=== PATIENT | female | born 1950 | race Caucasian/White ===

== ENCOUNTER 2023-08-08 11:27 | Outpatient (AMB) | payer MEDICARE, SELFPAY ==
--- NOTE | 2023-08-08 11:34 | MHC.OFFWIV ---
Intake Vital Signs 08/08/23 11:35 Height 5 ft BMI Reason not done Patient refused/unable BP 144/84 H Blood Pressure Location Rt brachial Position Sitting Respiration 14 Pulse 58 Pulse Source Pulse Oximeter Temp 98 F Temp Source Temporal Artery Scan Pulse Oximetry (%) 99 Oxygen Delivery Method Room Air Intake Visit Reasons: ? Sinus infection Intake Note: Patient is experiencing sinus pressure in cheeks and next to nose, as well as headaches and post nasal drip. Patient Tobacco Use Status: Never used Tobacco Stock Supervisor Required: No Accompanied by: Self / Same As Patient Allergies PAIN MEDICATIONS Adverse Reaction (Unknown, Uncoded 08/08/23 11:42) SENSITIVITY Do you need a note to return to daycare/school/sports/work: Yes Return to daycare/school/sports/work/other note: work HPI HPI Comments History of Present Illness Details Here today with complaints of sudden onset of sinus pain and pressure that started last night. Associated symptoms include the chills and a scratchy sore throat and cough. No medications tried at home. PFSH Social History Patient Tobacco Use Status: Never used Tobacco Review of Systems Const All systems reviewed & are unremarkable except as noted in HPI and below Physical Exam Vital Signs: Last Vital Signs Temp 98 F 08/08/23 11:35 Pulse 58 08/08/23 11:35 Resp 14 08/08/23 11:35 BP 144/84 H 08/08/23 11:35 Pulse Ox 99 08/08/23 11:35 Oxygen Delivery Method Room Air 08/08/23 11:35 Const Other: Awake alert oriented no acute distress TM intact and clear bilat Nares with mucoid discharge bilat, turbinates pale, mild sinus tenderness over right maxillary sinus with palpation Pharynx within normal limits rrr Lung sounds clear to auscultation bilat Assessment & Plan Assessment & Plan (1) Flu-like symptoms: Code(s): R68.89 - Other general symptoms and signs Plan: . (2) COVID-19 determined by clinical diagnostic criteria: Code(s): U07.1 - COVID-19 Plan Viral swab obtained today. + for COVID. She was made aware of this via phone at 1550 today. Isolation and Precautions for People with COVID-19 Updated November 09, 2022 If you were exposed to COVID-19, you should start taking precautions. Isolation and Exposure If you have COVID-19, you can spread the virus to others. There are precautions you can take to prevent spreading it to others: isolation, masking, and avoiding contact with people who are at high risk of getting very sick. Isolation is used to separate people with confirmed or suspected COVID-19 from those without COVID-19. These recommendations do not change based on COVID-19 hospital admission levels. If you have COVID-19, also see additional information on treatments that may be available to you. This information is intended for a general audience. Healthcare professionals should see Ending Isolation and Precautions for People with COVID-19. This [facility] guidance is meant to supplement?not replace?any federal, state, local, territorial, or [place] health and safety laws, rules, and regulations. For Healthcare Professionals: Ending Isolation and Precautions for People with COVID-19 When to Isolate Regardless of vaccination status, you should isolate from others when you have COVID-19. You should also isolate if you are sick and suspect that you have COVID-19 but do not yet have test results. If your results are positive, follow the full isolation recommendations below. If your results are negative, you can end your isolation. IF YOU TEST Negative You can end your isolation IF YOU TEST Positive Follow the full isolation recommendations below When you have COVID-19, isolation is counted in days, as follows: If you had no symptoms Day 0 is the day you were tested (not the day you received your positive test result) Day 1 is the first full day following the day you were tested If you develop symptoms within 10 days of when you were tested, the clock restarts at day 0 on the day of symptom onset If you had symptoms Day 0 of isolation is the day of symptom onset, regardless of when you tested positive Day 1 is the first full day after the day your symptoms started Isolation If you test positive for COVID-19, stay home for at least 5 days and isolate from others in your home. You are likely most infectious during these first 5 days. Wear a high-quality mask if you must be around others at home and in public. Do not go places where you are unable to wear a mask. For travel guidance, see CDC?s Travel webpage. Do not travel. Stay home and separate from others as much as possible. Use a separate bathroom, if possible. Take steps to improve ventilation at home, if possible. Don?t share personal household items, like cups, towels, and utensils. Monitor your symptoms. If you have an emergency warning sign (like trouble breathing), seek emergency medical care immediately. Learn more about what to do if you have COVID-19. Ending Isolation End isolation based on how serious your COVID-19 symptoms were. Loss of taste and smell may persist for weeks or months after recovery and need not delay the end of isolation. If you had no symptoms You may end isolation after day 5. If you had symptoms and: Your symptoms are improving You may end isolation after day 5 if: You are fever-free for 24 hours (without the use of fever-reducing medication). Your symptoms are not improving Continue to isolate until: You are fever-free for 24 hours (without the use of fever-reducing medication). Your symptoms are improving. 1 If you had symptoms and had: Moderate illness (you experienced shortness of breath or had difficulty breathing) You need to isolate through day 10. Severe illness (you were hospitalized) or have a weakened immune system You need to isolate through day 10. Consult your doctor before ending isolation. Ending isolation without a viral test may not be an option for you. If you are unsure if your symptoms are moderate or severe or if you have a weakened immune system, talk to a healthcare provider for further guidance. Regardless of when you end isolation Until at least day 11: Avoid being around people who are more likely to get very sick from COVID-19. Remember to wear a high-quality mask when indoors around others at home and in public. Do not go places where you are unable to wear a mask until you are able to discontinue masking (see below). For travel guidance, see CDC?s Travel webpage. Removing Your Mask After you have ended isolation, when you are feeling better (no fever without the use of fever-reducing medications and symptoms improving), Wear your mask through day 10. OR If you have access to antigen tests, you should consider using them. With two sequential negative tests 48 hours apart, you may remove your mask sooner than day 10. Note: If your antigen test results1 are positive, you may still be infectious. You should continue wearing a mask and wait at least 48 hours before taking another test. Continue taking antigen tests at least 48 hours apart until you have two sequential negative results. This may mean you need to continue wearing a mask and testing beyond day 10. After you have ended isolation, if your COVID-19 symptoms recur or worsen, restart your isolation at day 0. Talk to a healthcare provider if you have questions about your symptoms or when to end isolation. [1] As noted in the Food and Drug Administration labeling for authorized yxan-wmd-sghrtea antigen tests, negative test results do not rule out SARS-CoV-2 infection and should not be used as the sole basis for treatment or patient management decisions, including infection control decisions. Last Updated November 09, 2022 Total time spent caring for the patient today was 30 minutes. This includes time spent before the visit reviewing the chart, time spent during the visit, and time spent after the visit on documentation This note is constructed using voice recognition software. While every effort has been made to ensure accuracy in landscape manager, still errors may have been included Sometimes, these errors may affect the content or meaning of the given sentence . Orders: Orders SARS-CoV2/FLU/RSV Today R68.89 - Other general symptoms and signs Coding Level of Care Code Est Pt Level 4 (32450) Diagnoses Flu-like symptoms R68.89 COVID-19 determined by clinical diagnostic criteria U07.1
[2023-08-08 11:35] VITALS: BP 144/84; PULSE 58; RESP 14; TEMP 36.6; O2SAT 99
== END 2023-08-08 13:14 | disposition home or self-care (01) ==
PROVIDERS: PCP Family Medicine; Visit Provider Nurse Practitioner Family
DX: R68.89 Other general symptoms and signs (principal); U07.1 COVID-19
CPT/HCPCS: 99214

== ENCOUNTER 2023-08-08 14:46 | Outpatient (REF) | payer MEDICARE, OTHER, SELFPAY ==
[2023-08-08 15:38] LABS: Influenza A PCR NEGATIVE (Negative); Influenza B PCR NEGATIVE (Negative); Resp Syncy Virus RNA Qual PCR NEGATIVE (Negative); SARS COV2 PCR INHOUSE POSITIVE (Negative)
== END 2023-08-08 14:47 | disposition home or self-care (01) ==
LOC: HO.LNP 14:46
PROVIDERS: Visit Provider Nurse Practitioner Family
DX: Z11.52 Encounter for screening for COVID-19 (principal); Z20.822 Contact with and (suspected) exposure to COVID-19; R68.89 Other general symptoms and signs
CPT/HCPCS: 0241U

== ENCOUNTER 2024-04-13 09:44 | Inpatient (IN) | payer MEDICARE, MEDICAID, SELFPAY ==
--- NOTE | 2024-04-13 | ECG_ITS ---
Test Reason : pre-op Blood Pressure : / mmHG Vent. Rate : 057 BPM Atrial Rate : 057 BPM P-R Int : 150 ms QRS Dur : 086 ms QT Int : 452 ms P-R-T Axes : 018 -06 013 degrees QTc Int : 439 ms Sinus bradycardia Minimal voltage criteria for LVH, may be normal variant ( Sokolow-Mckeon ) Borderline ECG When compared with ECG of 29-MAY-2018 08:11, No significant change was found Referred By: Bryce Farfan Electronically Signed By:
--- NOTE | ~2024-04-13 | CT_ITS ---
EXAMINATION: CT ABDOMEN PELVIS WITH IV CONTRAST CLINICAL INFORMATION: BRBPR, rectal prolapase. COMPARISON: No prior CT available for comparison. TECHNIQUE: Multidetector volumetric imaging was performed from the superior aspect of the liver through the pubic symphysis . 5 mL of Omnipaque 350 injected Sagittal and coronal reformatted images were obtained on the technologist's workstation. This CT examination was performed using dose optimization techniques as appropriate, variously including the following: *Automated exposure control *Adjustment of mA and/or kV according to patient size (this includes techniques or standardized protocols for targeted exams where dose is matched to indication/reason for exam; i.e. extremities or head) *Use of iterative reconstruction technique DLP: 277 mGy-cm FINDINGS: LOWER THORAX: Included lung bases are clear. HEPATOBILIARY: No focal hepatic lesions. No biliary ductal dilatation. GALLBLADDER: Gallbladder unremarkable. SPLEEN: Spleen is normal in size. PANCREAS: No focal mass or ductal dilatation. STOMACH AND GASTROINTESTINAL TRACT: Stomach is grossly unremarkable. There is no bowel distention or thickening. No CT evidence of appendicitis. ADRENALS: No adrenal nodules. KIDNEYS/URETERS: No hydronephrosis, stones or solid mass lesions. URINARY BLADDER: Limited evaluation of the urinary bladder unopacified, images are degraded by beam hardening artifact from hip prosthesis. PELVIC VISCERA: There is soft tissue fullness also bone mass of the rectoanal junction 3.5 x 3.5 cm axially approximately 5.4 cm craniocaudally. Concerning for anorectal mass. This is very superficial and probably can be assessed by direct physical exam. Engorgement of the periuterine pelvic veins probably pelvic congestion. PERITONEUM: No free air or fluid. LYMPH NODES: No lymphadenopathy. VASCULAR:Abdominal aorta normal in size, no aneurysm found. 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 Grade 1 anterior spondylolisthesis and bilateral spondylolysis lysis of the pedicles of L5. CT/CT abdomen pelvis w IV con IMPRESSION: 1. There is soft tissue fullness of the rectoanal junction, concerning soft tissue mass 3.5 x 3.5 cm concerning for anorectal neoplasm. This is very superficial and probably can be visualized assessed by direct physical exam. Surgical evaluation recommended, Contrast enhanced MRI may be considered for further investigation if clinically indicated. 2. Engorgement of the periuterine pelvic veins probably pelvic congestion. 3. 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 Electronically signed by: Dallin Jeter MD 04/13/2024 01:06 PM EDT
[2024-04-13 09:48] VITALS: BP 138/84; PULSE 71; RESP 18; TEMP 36.6; O2SAT 100; BMI 16.6
--- NOTE | 2024-04-13 10:29 | ED_ITS ---
HPI - Female Genitourinary General Chief complaint: Urogenital-Female Stated complaint: urinary problem Time Seen by Provider: 04/13/24 10:08 Source: patient Mode of arrival: ambulatory Limitations: no limitations History of Present Illness ED Provider: DR. Forrest HPI Narrative: 73-year-old female came in for evaluation of rectal prolapse started to feel it 3 weeks ago, patient is finding more difficult to have bowel movement required to strain down, notice bright red blood per rectum, patient feels pressure in her rectal area and sometimes sharp pain, sometimes feel lightheadedness and generalized weakness. Patient do in a past bright blood if she is not straining down.Patient also feels pain and pressure when she sits down in her buttock. No dysuria, no frequency urination. Related Data Home Medications ?Medication ?Instructions ?Recorded ?Confirmed No Known Home Meds 08/08/23 08/08/23 Allergies Allergy/AdvReac Type Severity Reaction Status Date / Time No Known Allergies Allergy Verified 04/13/24 09:53 Review of Systems 2 Review of Systems: all other systems are reviewed and are negative Constitutional: Reports as per HPI and Reports no additional constitutional complaints Eyes: Reports as per HPI and Reports no additional eye complaints Reports system reviewed and no additional complaints, except as documented Cardiovascular: Reports as per HPI and Reports no additional cardiovascular complaints Respiratory: Reports as per HPI and Reports no additional respiratory complaints Gastrointestinal: Reports as per HPI and Reports no additional gastrointestinal complaints Genitourinary: Reports no additional female genitourinary complaints Musculoskeletal: Reports no additional musculoskeletal complaints Skin/Breast: Reports system reviewed and no additional complaints, except as docu Psychiatric: Reports no additional psychiatric complaints Endocrine: Reports no additional endocrine complaints Hematologic/Lymphatic: Reports no additional hematologic/lymphatic complaints Allergic/Immunologic: Reports no additional allergic/immunologic complaints Reports system reviewed and no additional complaints, except as documented and Reports Abnormal speech present [facility] Social History Social History Patient Tobacco Use Status: Never used Tobacco Advance Directives: No Advance Directives Information Provided: Yes Patient : No Physical Exam 2 Vital Signs: Vital Signs: Last Vital Signs Temp 97.9 F 04/13/24 12:28 Pulse 64 04/13/24 12:28 Resp 16 04/13/24 12:28 BP 161/63 H 04/13/24 12:28 Pulse Ox 100 04/13/24 12:28 O2 Del Method Room Air 04/13/24 12:28 BMI result Body Mass Index 16.6 Vital signs have been reviewed and appear to be correct. Blood pressure elevated. Heart rate normal. Respiratory rate normal. Temperature normal. Oxygen saturation normal. Appearance: Alert. Oriented X3. No acute distress. Head: Normal external exam. Normocephalic. Atraumatic. No Richard signs noted. No raccoon eyes noted Eyes: PERRLA. EOMI. Conjunctiva and sclera normal. Eyelids normal. ENT: TM's Normal. Pharynx normal. Uvula midline. Moist mucous membranes. No trismus noted. No drooling noted. No muffled voice noted. Neck: Normal inspection. Neck supple. FROM. No adenopathy. Thyroid Normal. No meningeal signs. No neck mass noted. CVS: Normal heart rate and rhythm. Heart sound normal. No murmurs noted. Pulses normal throughout. Respiratory: No respiratory distress. Painless inspiration. Breath sounds normal. No wheezes/rales/rhonchi noted. Chest nontender. No accessory muscle usage noted or decreased air movement noted. Abdomen: Soft and nontender. Bowel sounds normal in all 4 quadrants. No distention noted. No organomegaly noted. No visible injury noted. Rectal exam: 5 cm prolapsed rectum, no external or internal hemorrhoid is appreciated, no stool in the vault but positive for bright red blood. Back: No CVA tenderness. Full range of motion noted. Skin: Skin warm and dry. Normal skin color. Normal skin turgor. No rashes/lesions/lacerations noted. Extremities: No lower extremity edema. Extremities exhibit normal range of motion. Extremities nontender. Neuro: Oriented X 3. Cranial nerve exam: II-XII are grossly intact No motor deficit. No sensory deficit. Reflexes normal. Course Reevaluation(s) Reevaluation #1: rectal prolapse, not reducible, symptomatic with pain when she sat and causing bowel movements disturbance, case discussed with Dr. Meadows is to obtain CT abdomen pelvis with IV contrast and patient will be admitted for further evaluation. Time: 11:42 Medications Administered Generic Name Dose Route Start Last Admin Trade Name Freq PRN Reason Stop Dose Admin Dextrose/Lactated Ringer's 1,000 mls @ 125 mls/hr 04/13/24 11:30 04/13/24 12:25 D5lr IVCONT 125 mls/hr .Q8H BRYON Administration Discontinued Medications Generic Name Dose Route Start Last Admin Trade Name Jeimy PRN Reason Stop Dose Admin Iohexol 100 ml 04/13/24 11:47 04/13/24 11:47 Iohexol 350 Mg/Ml 100 Ml Infus..Btl IV 04/13/24 11:48 85 ml ONCE ONE Administration Medical Decision Making Differential Diagnosis Differential Diagnoses: The differential diagnosis associated with the presentation includes ( Rectal prolapse, hemorrhoid, colitis, diverticular disease, anemia, electrolyte derangement, UTI.) Admission/Observation Consideration of admission/observation: Escalation of care including admission/observation considered Consult Healthcare Provider Management of the patient was discussed with: [facility] Nurse Supervisor ( Dr. Meadows) Lab Data MDM Lab Attestation statement: I reviewed the patient's lab results. 04/13/24 10:29 04/13/24 10:29 Labs: Lab Results 04/13/24 Range/Units 10:29 WBC 12.1 H (4.8-10.8) X10*3/uL RBC 3.29 L (4.20-5.50) X10*6/uL Hgb 10.3 L (12.0-16.0) g/dl Hct 32.6 L (37.0-47.0) % MCV 99.1 H (80.0-98.0) fL MCH 31.3 (27.0-33.0) pg MCHC 31.6 (31.0-35.0) g/dl RDW 13.0 (11.0-16.0) % Plt Count 260 (160-400) X10*3/uL MPV 9.4 (9.4-12.3) fL Immature Gran % (Auto) 0.3 (0.0-0.4) % Neut % (Auto) 74.2 H (45-73) % Lymph % (Auto) 11.8 L (20-40) % [place] % (Auto) 11.8 H (2-11) % Eos % (Auto) 1.7 (0-4) % Baso % (Auto) 0.2 (0-2) % Lymph # (Auto) 1.4 (1.2-4.9) X10*3/uL [place] # (Auto) 1.4 H (0.1-1.2) X10*3/uL Eos # (Auto) 0.2 (0.0-0.4) X10*3/uL Baso # (Auto) 0.0 (0.0-0.2) X10*3/uL Abs Immat Gran (auto) 0.04 H (0.00-0.03) X10*3/uL Absolute Neuts (auto) 9.0 H (2.0-8.3) x10*3/uL Absolute Nucleated RBC 0.000 (0.0-0.012) X10*3/uL Nucleated RBC % (auto) 0.0 (0.0-0.2) /100WBC Sodium 142 (135-145) mmol/L Potassium 4.0 (3.3-5.1) mmol/L Chloride 104 (96-108) mmol/L Carbon Dioxide 26 (22-29) mmol/L Anion Gap 16 (12-20) BUN 19 H (9-16) mg/dL Creatinine 0.67 (0.5-1.4) mg/dL Estim Creat Clear Calc 44.9 Estimated GFR > 60 Random Glucose 109 (60-115) mg/dL Calcium 8.9 (8.4-10.2) mg/dL Total Bilirubin 0.3 (0.0-1.0) mg/dL AST 19 (5-31) U/L ALT 11 (0-31) U/L Alkaline Phosphatase 89 (39-117) U/L Total Protein 6.5 (6.5-8.0) g/dL Albumin 3.5 (3.5-5.0) g/dL Urine Color Yellow Urine Appearance Clear Urine pH 6.5 (5.0-9.0) Ur Specific [place] 1.020 (1.005-1.025) Urine Protein Trace (Neg-Trace) mg/dL Urine Glucose (UA) Negative (Negative) mg/dL Urine Ketones Negative (Negative) mg/dL Urine Blood Negative (Negative) Urine Nitrite Negative (Negative) Ur Leukocyte Esterase Small (1+) H (Negative) Urine RBC 0-2 (0-2) /HPF Urine WBC 0-5 (0-5) /HPF Ur Squamous Epith Cells 0-2 (0-2) /HPF Urine Bacteria None Seen (None Seen) Hyaline Casts 0-2 (0-2) /LPF Stool Occult Blood POSITIVE (NEGATIVE) Independent Interpretation I performed an independent interpretation of an: CT Scan ( abdomen And pelvis:1. There is soft tissue fullness of the rectoanal junction, concerning soft tissue mass 3.5 x 3.5 cm concerning for anorectal neoplasm. This is very superficial and probably can be visualized assessed by direct physical exam. Surgical evaluation recommended, Contrast enhance) Radiology Impression Discussion of test interpretation with radiology: I have reviewed the radiologist's reading. Discharge Plan Discharge Clinical Impression: Partial rectal prolapse Patient Disposition: Admitted As Inpatient
[2024-04-13 10:36] LABS: MANUAL DIFF FLAG NO
--- NOTE | 2024-04-13 10:36 | PC.NURSE ---
provider at bedside for rectal exam. IV established, labs obtained and sent. patient remains alert and oriented w/ even and unlabored respirations.
[2024-04-13 10:37] LABS: OBS Int Ctl Valid YES; OBS1 POSITIVE (NEGATIVE)
[2024-04-13 10:38] LABS: Appearance Urine Clear; Color Urine Yellow; Glucose Urine UA Negative (Negative); Leukocyte Esterase Urine Small (1+) (Negative); Nitrite Urine Negative (Negative); PH 6.5 (5.0-9.0); UMIC TRIGGER UACC YES; Urine Blood Negative (Negative); Urine Ketones Negative (Negative); Urine Protein Trace mg/dL (Neg-Trace)
[2024-04-13 10:39] LABS: Basophils Percent Auto 0.2 % (0-2); Eosinophils Absolute Auto 0.2 X10*3/uL (0.0-0.4); Eosinophils Percent Auto 1.7 % (0-4); Hematocrit 32.6 % (37.0-47.0); Hemoglobin 10.3 g/dl (12.0-16.0); Imm Gran Abs Auto 0.04 X10*3/uL (0.00-0.03); Imm Gran Pct Auto 0.3 % (0.0-0.4); Lymphocytes Absolute Auto 1.4 X10*3/uL (1.2-4.9); Lymphocytes Percent Auto 11.8 % (20-40); Mean Corpuscular HGB Conc 31.6 g/dl (31.0-35.0); Mean Corpuscular Hemoglobin 31.3 pg (27.0-33.0); Mean Corpuscular Volume 99.1 fL (80.0-98.0); Mean Platelet Volume 9.4 fL (9.4-12.3); Monocytes Absolute Auto 1.4 X10*3/uL (0.1-1.2); Monocytes Percent Auto 11.8 % (2-11); Neutrophils Percent Auto 74.2 % (45-73); Platelet Count 260 X10*3/uL (160-400); Red Blood Count 3.29 X10*6/uL (4.20-5.50); White Blood Count 12.1 X10*3/uL (4.8-10.8)
[2024-04-13 10:47] LABS: Bacteria Urine None Seen (None Seen); Hyaline Casts Urine 0-2 /LPF (0-2); RBC Urine 0-2 /HPF (0-2); Squamous Epithelial Cell Urine 0-2 /HPF (0-2); UACC Culture Trigger YES; WBC Urine 0-5 /HPF (0-5)
[2024-04-13 10:51] LABS: Alanine Aminotransferase 11 U/L (0-31); Albumin Level 3.5 g/dL (3.5-5.0); Alkaline Phosphatase 89 U/L (39-117); Anion Gap 16 (12-20); Aspartate Amino Transferase 19 U/L (5-31); Bilirubin Total 0.3 mg/dL (0.0-1.0); Blood Urea Nitrogen 19 mg/dL (9-16); Calcium 8.9 mg/dL (8.4-10.2); Carbon Dioxide 26 mmol/L (22-29); Chloride 104 mmol/L (96-108); Creatinine Clr Calc Pharmacy 44.9; Estimated Glomerular Filt Rate > 60; Glucose Random 109 mg/dL (60-115); Sodium 142 mmol/L (135-145); Total Protein 6.5 g/dL (6.5-8.0)
[2024-04-13] MEDS: iohexoL 350 MG/ML 100 ML INFUS..BTL IV (11:47)
[2024-04-13] MEDS: Dextrose 5 % and Lactated Ring 1,000 ML 125 ML IVCONT ×2 (12:25→20:39)
[2024-04-13 12:28] VITALS: BP 161/63; PULSE 64; RESP 16; TEMP 36.6; O2SAT 100
--- NOTE | 2024-04-13 12:33 | PC.NURSE ---
IV fluids infusing, awaiting results from ct scan. linens cleaned, ambulated to the bathroom - provided with pad and wipes. ambulated with steady gait.
[2024-04-13] MEDS: Acetaminophen 325 MG TABLET 650 MG PO ×2 (13:44→20:48)
--- NOTE | 2024-04-13 13:56 | PHA.MEDREC ---
Pharmacy Consult ? Medication Reconciliation Pharmacy has completed the medication reconciliation. Spoke with pt at bedside.
[2024-04-13 15:15] VITALS: BP 163/64; PULSE 61; RESP 14; TEMP 36.7
--- NOTE | 2024-04-13 15:36 | P.CONHOSP_ITS ---
History of Present Illness Data of Consult Service Date: 04/13/24 Primary Care Provider: None Physician HPI Reason for consult: pre-op eval The patient is a 73-year-old female with no significant past medical history who presents to the emergency room with a 2 week history of rectal pain and bright red blood per rectum. The patient endorses ongoing symptoms the last 2 weeks which have progressively worsened. She reports that she had been ignoring this but due to ongoing pain she presented to the emergency room. In the ED, she was felt to have rectal prolapse which was unable to be reduced. A CT scan of the abdomen and pelvis showed soft tissue fullness at the rectoanal junction concerning for soft tissue mass. The patient has been admitted by general surgery and a medical consult has been requested for preop evaluation. Patient is seen and examined in the emergency room. She reports no current pain. She denies any chronic health problems. She endorses running 2-3 miles per day. She does report that she has not seen a PCP in many years. Review of Systems 2 Review of Systems: Negative except HPI/interval history. [facility] Cognitive capacity: Denies H Social History Household Members: None Housing: House Patient Tobacco Use Status: Never used Tobacco Use of substances other than those prescribed or required for medical reasons: No Have you been hit, kicked, punched, or otherwise hurt by someone within the past year? If so, by whom?: No Do you feel safe in your current relationship?: No Current Relationship Is there a partner from a previous relationship who is making you feel unsafe now?: No Are you made to feel afraid or neglected: No Advance Directives: No Advance Directives Information Provided: Yes Do you have a plan to hurt others: No Plan Recently lost weight without trying: No How much weight loss: Not applicable Eating poorly because of decreased appetite: No Nutrition screen score: 0 Patient : No : No Poor oral hygiene: No Meds Allergies Allergy/AdvReac Type Severity Reaction Status Date / Time No Known Allergies Allergy Verified 04/13/24 09:53 Active Medications: Current Medications Acetaminophen (Acetaminophen 325 Mg Tablet) 650 mg PO Q6H PRN PRN Reason: Pain, Mild (Pain Scale 1-3), fever or headache Last Admin: 04/13/24 13:44 Dose: 650 mg Calcium Carbonate (Calcium Carbonate 750 Mg Tab.Chew) 750 mg PO Q4H PRN PRN Reason: Heartburn Hydromorphone HCl (Hydromorphone Hcl 0.5 Mg/0.5 Ml Syringe) 0.5 mg IVPUSH Q3H PRN; Protocol PRN Reason: Pain, Severe (Pain Scale 7-10) Dextrose/Lactated Ringer's (D5lr) 1,000 mls @ 125 mls/hr IVCONT .Q8H [facility] [place] Last Admin: 04/13/24 12:25 Dose: 125 mls/hr Magnesium Hydroxide (Milk Of Magnesia 30 Ml Oral.Susp) 30 ml PO DAILY PRN PRN Reason: Constipation Melatonin (Melatonin 3 Mg Tablet) 6 mg PO BEDTIME PRN PRN Reason: Insomnia Ondansetron HCl (Ondansetron Hcl 4 Mg/2 Ml Vial) 4 mg IVPUSH QID PRN PRN Reason: Nausea Sodium Chloride (0.9 % Sodium Chloride Flush 3 Ml Syringe) 3 ml IVFLUSH QSHIFT [facility] Home Medications ?Medication ?Instructions ?Recorded ?Confirmed ?Last Taken ?Type multivitamin 1 tab PO DAILY 04/13/24 04/13/24 04/13/24 History Physical Exam 2 Vital Signs and Narrative: Vital Signs: Last Vital Signs Temp 98.0 F 04/13/24 15:15 Pulse 61 04/13/24 15:15 Resp 14 04/13/24 15:15 BP 163/64 H 04/13/24 15:15 Pulse Ox 100 04/13/24 12:28 O2 Del Method Room Air 04/13/24 12:28 BMI result Body Mass Index 16.6 Const: Other: Constitutional - Awake and Alert, No apparent distress Eyes - PERRLA, EOMI Cardiovascular - S1S2, RRR, No edema Respiratory - Normal lung expansion, Normal respiratory effort, No respiratory distress, CTA bilaterally Gastrointestinal - NT / ND; +BS; No rebound or guarding - No CVA tenderness Extremities - no calf tenderness bilaterally, no swelling Musculoskeletal - Normal inspection, normal ROM Skin - Warm/Dry Neurological - Alert & oriented x3, No focal deficit Psychological - Appropriate affect Results Labs 04/13/24 10:29 04/13/24 10:29 Labs: Laboratory Results - last 24 hr 04/13/24 10:29 MCV 99.1 H MCH 31.3 MCHC 31.6 RDW 13.0 Plt Count 260 MPV 9.4 Immature Gran % (Auto) 0.3 Neut % (Auto) 74.2 H Lymph % (Auto) 11.8 L [place] % (Auto) 11.8 H Eos % (Auto) 1.7 Baso % (Auto) 0.2 Lymph # (Auto) 1.4 [place] # (Auto) 1.4 H Eos # (Auto) 0.2 Baso # (Auto) 0.0 Abs Immat Gran (auto) 0.04 H Absolute Neuts (auto) 9.0 H Absolute Nucleated RBC 0.000 Nucleated RBC % (auto) 0.0 Anion Gap 16 Estim Creat Clear Calc 44.9 Estimated GFR > 60 Random Glucose 109 Calcium 8.9 Total Bilirubin 0.3 AST 19 ALT 11 Alkaline Phosphatase 89 Total Protein 6.5 Albumin 3.5 Urine Color Yellow Urine Appearance Clear Urine pH 6.5 Ur Specific [place] 1.020 Urine Protein Trace Urine Glucose (UA) Negative Urine Ketones Negative Urine Blood Negative Urine Nitrite Negative Ur Leukocyte Esterase Small (1+) H Urine RBC 0-2 Urine WBC 0-5 Ur Squamous Epith Cells 0-2 Urine Bacteria None Seen Hyaline Casts 0-2 Stool Occult Blood POSITIVE Imaging Radiologist's Impressions: Impressions Abdomen/Pelvis CT 04/13/24 11:20 IMPRESSION: 1. There is soft tissue fullness of the rectoanal junction, concerning soft tissue mass 3.5 x 3.5 cm concerning for anorectal neoplasm. This is very superficial and probably can be visualized assessed by direct physical exam. Surgical evaluation recommended, Contrast enhanced MRI may be considered for further investigation if clinically indicated. 2. Engorgement of the periuterine pelvic veins probably pelvic congestion. 3. 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 Electronically signed by: Dallin Jeter MD 04/13/2024 01:06 PM EDT Assessment and Plan (1) Pre-op evaluation: Status: Acute Plan 73 yo F without any significant PMH who presents to the ED with complaints of rectal pain -- suspected due to rectal prolapse. CT imaging showing soft tissue mass at the ano-rectal junction. 1. Pre-op eval Pt reports no significant medical history. She reports being active - with daily 2-3 miles running. No history of caridac or pulmonary disease EKG pending, but suspect she's likely low risk for MACE. No further work up indicated. 2. Rectal pain/mass on CT/? prolapse mgmt per surgery will follow as needed, please reach out if any questions.
[2024-04-13 16:00] VITALS: BP 160/60; PULSE 54; RESP 14; TEMP 36.3; O2SAT 100
[2024-04-13 18:55] VITALS: BP 140/60; PULSE 53; RESP 16; TEMP 36.4; O2SAT 100
[2024-04-14] MEDS: Dextrose 5 % and Lactated Ring 1,000 ML 125 ML IVCONT ×2 (03:38→11:41)
[2024-04-14 03:39] VITALS: BP 138/66; PULSE 62; RESP 16; TEMP 36.6; O2SAT 99
[2024-04-14] MEDS: Acetaminophen 325 MG TABLET 650 MG PO ×2 (03:45→10:29)
[2024-04-14 06:36] LABS: MANUAL DIFF FLAG NO
[2024-04-14 06:40] LABS: Basophils Percent Auto 0.3 % (0-2); Eosinophils Absolute Auto 0.3 X10*3/uL (0.0-0.4); Eosinophils Percent Auto 3.2 % (0-4); Hematocrit 31.7 % (37.0-47.0); Hemoglobin 10.2 g/dl (12.0-16.0); Imm Gran Abs Auto 0.05 X10*3/uL (0.00-0.03); Imm Gran Pct Auto 0.6 % (0.0-0.4); Lymphocytes Percent Auto 11.4 % (20-40); Mean Corpuscular HGB Conc 32.2 g/dl (31.0-35.0); Mean Corpuscular Hemoglobin 31.3 pg (27.0-33.0); Mean Corpuscular Volume 97.2 fL (80.0-98.0); Mean Platelet Volume 9.4 fL (9.4-12.3); Monocytes Absolute Auto 1.1 X10*3/uL (0.1-1.2); Monocytes Percent Auto 12.5 % (2-11); Neutrophils Absolute Auto 6.3 x10*3/uL (2.0-8.3); Platelet Count 267 X10*3/uL (160-400); Red Blood Count 3.26 X10*6/uL (4.20-5.50); Red Cell Distribution Width 12.9 % (11.0-16.0); White Blood Count 8.8 X10*3/uL (4.8-10.8)
[2024-04-14 07:00] LABS: Anion Gap 10 (12-20); Blood Urea Nitrogen 8 mg/dL (9-16); Calcium 8.7 mg/dL (8.4-10.2); Carbon Dioxide 31 mmol/L (22-29); Chloride 105 mmol/L (96-108); Creatinine Clr Calc Pharmacy 47.7; Estimated Glomerular Filt Rate > 60; Glucose Random 111 mg/dL (60-115); Sodium 142 mmol/L (135-145)
[2024-04-14 07:18] VITALS: BP 142/66; PULSE 58; RESP 16; TEMP 36.6; O2SAT 97
--- NOTE | 2024-04-14 09:42 | MHC.CM.PN ---
IMM 04/14. Pt self-care, lives at home alone. Educated on HCP, declines at this time. Pt will transport herself home at discharge (car is in lot). Pt states she does not have a PCP, this CM offered to provide her with a local list of PCP's, pt stated not to bother.
[2024-04-14 11:39] VITALS: BMI 18.8
--- NOTE | 2024-04-14 13:15 | MHC.CLN ---
NUTRITION CURRENTLY NPO. DX RECTAL PROLAPSE. HAD PRE-OP EVAL. REPORTED 2 WEEKS RECTAL PAIN/BLEEDING. PATIENT IS UNDERWEIGHT WITH BMI=18.8. IS 96% OF IBW. MILD DEPLETION OF MUSCLE MASS NOTED. FOLLOW FOR PLAN OF CARE, DIET ADVANCEMENT, PO INTAKE. SEE CLINICAL NUTRITION ASSESSMENT 04/14/24.
--- NOTE | 2024-04-14 14:23 | P.HPGS_ITS ---
History of Present Illness History of Present Illness Date of Service: 04/14/24 Chief complaint: rectal prolapse Narrative: Penelope Canchola is a 73 year old female presents here with what she states as a three-week history of anorectal protrusion/swelling. It persists and is not reducible spontaneously or manually. Patient otherwise tolerating a diet, has regular bowel habits. The last through 3 weeks time she has noticed predominantly the discomfort but some bleeding from this anorectal process. Patient has never had colonoscopy before. Chart was reviewed and patient evaluated [facility] Social History Social History Household Members: None Housing: House Patient Tobacco Use Status: Never used Tobacco Use of substances other than those prescribed or required for medical reasons: No Currently Displaying Signs/Symptoms of Drug Intoxication Withdrawal: No Have you been hit, kicked, punched, or otherwise hurt by someone within the past year? If so, by whom?: No Do you feel safe in your current relationship?: No Current Relationship Is there a partner from a previous relationship who is making you feel unsafe now?: No Are you made to feel afraid or neglected: No Advance Directives: No Advance Directives Information Provided: Yes Do you have a plan to hurt others: No Plan Recently lost weight without trying: No How much weight loss: Not applicable Eating poorly because of decreased appetite: No Nutrition screen score: 0 Patient : No : No Poor oral hygiene: No service: No Meds Allergies Allergy/AdvReac Type Severity Reaction Status Date / Time No Known Allergies Allergy Verified 04/13/24 09:53 Active Medications: Current Medications Acetaminophen (Acetaminophen 325 Mg Tablet) 650 mg PO Q6H PRN PRN Reason: Pain, Mild (Pain Scale 1-3), fever or headache Last Admin: 04/14/24 10:29 Dose: 650 mg Calcium Carbonate (Calcium Carbonate 750 Mg Tab.Chew) 750 mg PO Q4H PRN PRN Reason: Heartburn Hydromorphone HCl (Hydromorphone Hcl 0.5 Mg/0.5 Ml Syringe) 0.5 mg IVPUSH Q3H PRN; Protocol PRN Reason: Pain, Severe (Pain Scale 7-10) Dextrose/Lactated Ringer's (D5lr) 1,000 mls @ 125 mls/hr IVCONT .Q8H BRYON Last Admin: 04/14/24 11:41 Dose: 125 mls/hr Magnesium Hydroxide (Milk Of Magnesia 30 Ml Oral.Susp) 30 ml PO DAILY PRN PRN Reason: Constipation Melatonin (Melatonin 3 Mg Tablet) 6 mg PO BEDTIME PRN PRN Reason: Insomnia Ondansetron HCl (Ondansetron Hcl 4 Mg/2 Ml Vial) 4 mg IVPUSH QID PRN PRN Reason: Nausea Sodium Chloride (0.9 % Sodium Chloride Flush 3 Ml Syringe) 3 ml IVFLUSH QSHIFT [facility] Last Admin: 04/14/24 13:23 Dose: Not Given Home Medications ?Medication ?Instructions ?Recorded ?Confirmed ?Last Taken ?Type multivitamin 1 tab PO DAILY 04/13/24 04/13/24 04/13/24 History Physical Exam Vital Signs: Vital Signs: Last Vital Signs Temp 97.8 F 04/14/24 07:18 Pulse 58 04/14/24 07:18 Resp 16 04/14/24 07:18 BP 142/66 H 04/14/24 07:18 Pulse Ox 97 04/14/24 07:18 O2 Del Method Room Air 04/14/24 07:18 BMI result Body Mass Index 18.8 GI: Other: Abdomen is soft, benign anorectal exam demonstrates a circumferential rim of heaped up firm irregular neoplastic appearing tissue more consistent with an anal neoplasm and not rectal prolapse. This was very tender to palpation and rectal exam was deferred because of this. Results Results Labs: Short CBC 04/14/24 Range/Units 06:00 WBC 8.8 (4.8-10.8) X10*3/uL Hgb 10.2 L (12.0-16.0) g/dl Hct 31.7 L (37.0-47.0) % Plt Count 267 (160-400) X10*3/uL BMP 04/14/24 06:15 Sodium 142 Potassium 4.0 Chloride 105 Carbon Dioxide 31 H BUN 8 L Creatinine 0.63 Calcium 8.7 Urine 04/13/24 Range/Units 10:29 Urine Color Yellow Urine Appearance Clear Urine pH 6.5 (5.0-9.0) Ur Specific [place] 1.020 (1.005-1.025) Urine Protein Trace (Neg-Trace) mg/dL Urine Glucose (UA) Negative (Negative) mg/dL Assessment and Plan (1) Anal neoplasm: Status: Acute Plan Current plan is the patient needs a workup for this including biopsy of this anorectal process as well as a colonoscopy. Clinical evaluation as noted above corroborated by CT scan is very consistent with a neoplastic process. At present, current plans to advance the diet, discharge the patient she will be given instructions for follow-up with me early this week. All questions answered. Plan as noted above. Quality Stroke Does the patient have a stroke diagnosis?: No VTE Prior VTE?: No VTE Risk Level:: Surgical - moderate VTE Device Contraindication: N/A - Device Ordered VTE Drug Contraindication: Treatment Not Tolerated Procedures Date of Service Date of Service: 04/14/24
--- NOTE | 2024-04-14 16:02 | PC.NURSE ---
Addendum entered by Ramya Gutiérrez RN 04/14/24 16:32: ~1620 patient returned to unit to have IV removed and go over discharge paperwork, this RN removed IV and discussed discharge paperwork with pt, pt verbalized understanding and educated on hospital discharge process, additionally pt signed ''leaving unaccompanied form since she was driving herself home. Original Note: this RN went to go over discharge paperwork and remove IV with pt ~1540, at this time patient was not in room or hallway and no staff had witnessed this patient leave. Multiple attempts to call patients' cell phone were made as well as her only contact provided (her daughter). Eventually patient called the unit back ~1555 and stated she was under the impression she was discharged and could leave on her own (patient drove herself to the hospital and car was in parking lot). Patient was instructed that she needs to come back to the hospital since she left without getting IV removed or getting her discharge paperwork. Patient verbalized understanding.
--- NOTE | 2024-04-14 17:29 | P.DS_ITS ---
DS: Providers Provider Date of Service: 04/14/24 Date of admission: 04/13/24 11:19 Date of discharge: 04/14/24 Primary care physician: None Physician Attending physician on admission: David Meadows Consults: 04/13/24 11:19 Consult to Hospitalist Routine Comment: Consulting Provider: Hospitalist Reason For Exam: Rectal prolapse, preop risk assessment Attending physician on discharge: Jay Hassan DS: Diagnosis Discharge Diagnosis (1) Anal neoplasm: Status: Acute DS: Summary Hospital Course Hospital Course: HPI AT ADMISSION: Penelope Canchola is a 73 year old female presents here with what she states as a three-week history of anorectal protrusion/swelling. It persists and is not reducible spontaneously or manually. Patient otherwise tolerating a diet, has regular bowel habits. The last through 3 weeks time she has noticed predominantly the discomfort but some bleeding from this anorectal process. Patient has never had colonoscopy before. Chart was reviewed and patient evaluated. HOSPITAL COURSE: The patient was admitted to the surgical service for observation and evaluation. Hospitalist service was consulted for pre op risk stratification. Clinical evaluation as noted above corroborated by CT scan is very consistent with a neoplastic process. She needs further workup for this including biopsy of this anorectal process as well as a colonoscopy. This was discussed with the patient who was instructed to f/u in the office early this week to arrange. Her diet was advanced. She was discharged to home on 04/14/24 in stable condition. Status at Discharge Functional status at discharge: independent ambulation Overall status at discharge: patient is progressing back to baseline Time Attestation Discharge Coordination Time (in mins): 30 Quality: Safe Use of Opioids Does Pt have an Active Cancer Diagnosis on the Problem List?: No Quality: Stroke Does the patient have a stroke diagnosis?: No Physical Exam Vital Signs: Vital Signs: Last Vital Signs Temp 97.8 F 04/14/24 07:18 Pulse 58 04/14/24 07:18 Resp 16 04/14/24 07:18 BP 142/66 H 04/14/24 07:18 Pulse Ox 97 04/14/24 07:18 O2 Del Method Room Air 04/14/24 07:18 BMI result Body Mass Index 18.8 Const: General: comfortable, no acute distress and alert Orientation/consciousness: patient oriented x3 GI: Other: external anorectal exam demonstrates a circumferential rim of heaped up firm irregular neoplastic appearing tissue more consistent with an anal neoplasm vs rectal prolapse; very tender to palpation and rectal exam was deferred because of this Palpation (GI): Soft to palpation Neuro: General: patient oriented x3 Discharge Plan Discharge Anticipated Discharge Date/Time: 04/14/24 15:00 Patient Disposition: Home, Self-Care Discharge Diagnosis: Anal tumor Referrals: Physician,None [Primary Care Provider] - 1 Week Jay Hassan MD [Physician] - 1 Week Discharge Medications: Continued multivitamin Tablet 1 tab PO DAILY Discharge Orders: Discharge Order (Routine); Ordered 04/14/24 Ordered By: Jay Hassan Diet: Advance to usual diet Activity on Discharge: No heavy lifting Stand Alone Forms: Patient Portal Discharge page Print Language: Frisian Care Plan Goals: Workup to diagnose anal mass Health Concerns: No new issues Plan of Treatment: As noted above Assessment: Stable Discharge Date/Time: 04/14/24 16:44
== END 2024-04-14 16:44 | disposition home or self-care (01) | DRG 375 ==
LOC: HO.ED 10:36 → HO.EDOVER 11:41 → HO.S3 13:14
PROVIDERS: Admitting Provider Surgery; Emergency Provider Emergency Medicine; Visit Provider Surgery
DX: D49.0 Neoplasm of unspecified behavior of digestive system (principal); K62.5 Hemorrhage of anus and rectum; Z79.899 Other long term (current) drug therapy
CPT/HCPCS: 36415; 74177; 80048; 80053; 81001; 82272; 85025; 87086; 93005; 99285; Q9967

== ENCOUNTER → 2024-04-13 11:19 | Outpatient (BNV) | payer MEDICARE, MEDICAID, SELFPAY | PROVIDERS: Admitting Provider Surgery; Emergency Provider Emergency Medicine; Visit Provider Surgery | DX: D49.0 Neoplasm of unspecified behavior of digestive system (principal) | CPT/HCPCS: 99222; 99499 ==

== ENCOUNTER → 2024-04-13 11:19 | Outpatient (BNV) | payer MEDICARE, MEDICAID, SELFPAY | PROVIDERS: Admitting Provider Surgery; Emergency Provider Emergency Medicine; Visit Provider Family Medicine | DX: K62.89 Other specified diseases of anus and rectum (principal) | CPT/HCPCS: 99222 ==

== ENCOUNTER 2024-04-15 11:20 | Outpatient (AMB) | payer MEDICARE, MEDICAID, SELFPAY ==
--- NOTE | 2024-04-15 11:20 | MHC.OFFVIS ---
Vital Signs 04/15/24 11:23 Height 5 ft Weight 85 lb 8 oz BMI 16.7 BP 167/78 H Blood Pressure Location Rt brachial Position Sitting Pulse 59 Intake Visit Reasons: Rectal prolapse Intake Note: Patient referred after EC visit on 04-13-24 for rectal prolapse. First noticed 2wks ago. Never had colonoscopy. Patient c/o: some bleeding with BM. Plate Stacker Required: No Accompanied by: Self / Same As Patient Allergies No Known Allergies Allergy (Verified 04/13/24 09:53) HPI Comments Details: Patient was seen by me yesterday after an admission for was felt initially to be a rectal prolapse with actually is an exophytic anal mass. Please refer to hospital H and P from yesterday with more details. Patient presents here for further workup. Chart was reviewed and patient evaluated [facility] Social History Household Members: None Housing: House Patient Tobacco Use Status: Never used Tobacco service: No Physical Exam Vital Signs: Last Vital Signs Pulse 59 04/15/24 11:23 BP 167/78 H 04/15/24 11:23 BMI result Body Mass Index 16.7 Const Other: Thin female Chest Other: Chest breath sounds bilaterally, HS 1 in 2 GI Other: Abdomen is scaphoid, soft, benign. Patient has a circumferentially exophytic fungating anal mass clinically consistent with an anal carcinoma. Assessment & Plan Assessment & Plan (1) Anal neoplasm: Code(s): D49.0 - Neoplasm of unspecified behavior of digestive system Category: Surgical (2) Pre-op evaluation: Code(s): Z01.818 - Encounter for other preprocedural examination Category: Surgical Plan Current plan is for an EUA and biopsy lower 0 to obtain tissue for diagnosis. Patient was never had colonoscopy before and arrangements were made for this as well. Risks, benefits, alternatives of the above-mentioned procedure were reviewed with the patient and included but not limited to bleeding, infection, non diagnosis, numbness, pain, scarring the patient wished to proceed. All questions answered. Arrangements were made for this on 04/17 Orders: Referrals Gastroenterology Referral D49.0 - Neoplasm of unspecified behavior of digestive system, K62.3 - Rectal prolapse Coding Level of Care Code Est Pt Level 5 (80662) Diagnoses Anal neoplasm D49.0 Pre-op evaluation Z01.818
[2024-04-15 11:23] VITALS: BP 167/78; PULSE 59; BMI 16.7
== END 2024-04-15 11:57 | disposition home or self-care (01) ==
PROVIDERS: Visit Provider Surgery
DX: D49.0 Neoplasm of unspecified behavior of digestive system (principal); Z01.818 Encounter for other preprocedural examination
CPT/HCPCS: 99214

== ENCOUNTER → 2024-04-15 11:20 | Outpatient (BNVA) | payer MEDICARE, MEDICAID, SELFPAY | PROVIDERS: Visit Provider Surgery | DX: Z01.818 Encounter for other preprocedural examination (principal); D49.0 Neoplasm of unspecified behavior of digestive system | CPT/HCPCS: 99212 ==

== ENCOUNTER 2024-04-18 12:44 | Day surgery (SDC) | payer MEDICARE, MEDICAID, SELFPAY ==
--- NOTE | 2024-04-16 12:43 | HO.ANESPROP2 ---
Documented by User: Jes Hauser NP 04/16/24 12:45 HPI - Anesthesia Eval Consult details Narrative: 73yo F for EUA,with Anal Mass Biopsy PMFSH Active Problems Active Problems: All Active Problems Anal neoplasm (Acute) Pre-op evaluation (Acute) Partial rectal prolapse (Acute) COVID-19 determined by clinical diagnostic criteria (Acute) Past Medical History Medical History (Updated 04/18/24 @ 14:05 by Ashwini Galicia RN) Mass of anus Surgical History Surgical History (Updated 04/18/24 @ 14:05 by Ashwini Galicia RN) History of left hip replacement Social History Social History Household Members: None Housing: House Are you a primary healthcare management consultant to a significant other at home: No Do you presently have visiting nurse or other home services: No Patient Tobacco Use Status: Never used Tobacco Have you been hit, kicked, punched, or otherwise hurt by someone within the past year? If so, by whom?: No Are you DNR?: No Advance Directives: No Advance Directives Information Provided: Yes Recently lost weight without trying: Yes How much weight loss: 2-13 pounds Eating poorly because of decreased appetite: No Nutrition screen score: 3 service: No Meds Allergies Allergy/AdvReac Type Severity Reaction Status Date / Time No Known Allergies Allergy Verified 04/18/24 14:05 Home Medications ?Medication ?Instructions ?Recorded ?Confirmed ?Last Taken ?Type multivitamin 1 tab PO DAILY 04/13/24 04/18/24 04/13/24 History Exam Pertinent Lab Results Pertinent Lab Results: Laboratory Tests 04/14/24 04/14/24 06:00 06:15 WBC 8.8 Hgb 10.2 L Hct 31.7 L Plt Count 267 Sodium 142 Potassium 4.0 Chloride 105 Carbon Dioxide 31 H BUN 8 L Creatinine 0.63 Narrative Narrative: EKG 04/2024 Vent. Rate : 057 BPM Atrial Rate : 057 BPM P-R Int : 150 ms QRS Dur : 086 ms QT Int : 452 ms P-R-T Axes : 018 -06 013 degrees QTc Int : 439 ms Sinus bradycardia Minimal voltage criteria for LVH, may be normal variant ( Sokolow-Mckeon ) Borderline ECG When compared with ECG of 29-MAY-2018 08:11, No significant change was found Assessment and Plan Assessment Anesthesia Assessment: Chart Reviewed Documented by User: Donta Jefferson MD 04/18/24 14:31 [facility] Past Medical History Medical History (Updated 04/18/24 @ 14:05 by Ashwini Galicia RN) Mass of anus Family History Family history of problems with anesthesia: No Surgical History Surgical History (Updated 04/18/24 @ 14:05 by Ashwini Galicia RN) History of left hip replacement History of Problems with Anesthesia: Yes (PONV) Social History Social History Household Members: None Housing: House Are you a primary healthcare management consultant to a significant other at home: No Do you presently have visiting nurse or other home services: No Patient Tobacco Use Status: Never used Tobacco Have you been hit, kicked, punched, or otherwise hurt by someone within the past year? If so, by whom?: No Are you DNR?: No Advance Directives: No Advance Directives Information Provided: Yes Recently lost weight without trying: Yes How much weight loss: 2-13 pounds Eating poorly because of decreased appetite: No Nutrition screen score: 3 service: No Meds Allergies Allergy/AdvReac Type Severity Reaction Status Date / Time No Known Allergies Allergy Verified 04/18/24 14:05 Home Medications ?Medication ?Instructions ?Recorded ?Confirmed ?Last Taken ?Type multivitamin 1 tab PO DAILY 04/13/24 04/18/24 04/13/24 History Exam Airway Mallampati Class: I TM Dist: >3cm Neck ROM: Full Loose/Missing/Broken Teeth: No Heart: ok Lungs: ok Assessment and Plan Assessment Anesthesia Assessment: Anesthesia Plan Discussed Final Anesthetic Review Family History of Problems with Anesthesia: No History of Problems with Anesthesia: Yes (PONV) NPO: Yes ASA Class: III Final Preanesthetic Review: No Changes in Pt Med Stat, Meds/Allgs Chart Reviewed, Consent Obtained/Reviewed and Anes Risks/Benef Reviewed Patient Risk: Intermediate Procedure Risk: Low Anesthetic Plan Anesthetic Plan: MAC: and Agree w/ Assess. and Plan Disposition: Standard PACU
--- NOTE | 2024-04-17 09:56 | P.HPSUR_ITS ---
Pre-Procedural Eval Section A - 24 Hr Update-Section A only Date of Service: 04/18/24 The patient is an INPATIENT: No Changes since office visit: No Cold of Flu in the past 2 weeks, No New Medical Problems, No Changes in Medication and No Patient answered all questions Section B - Complete if H&P > 30 days Chief Complaint: Neoplasm of unspecified behavior digestive system Allergies: Allergies Allergy/AdvReac Type Severity Reaction Status Date / Time No Known Allergies Allergy Verified 04/13/24 09:53 Review of Systems Sugical H&P ROS: Negative: Constitution, Cardiovascular, Respiratory, Neurological, Psychiatric, Hem-Onc, Allergic/Immunologic, Gastrointestinal, Genitourinary, Musculoskeletal, Integumentary, Endocrine and E yes/Ears/Nose/Throat Exam Surgical H&P Exam: Normal: HEENT, Normal: Heart, Normal: Lungs, Normal: Extremities, Normal: Abdomen, Normal: Skin and Normal: Neurological Plan I have reviewed the history and physical and performed a pertinent physical examination on my patient. No changes have occurred unless specified. Time Spent With Patient Time: Total time managing care of this patient today ____ minutes.
--- NOTE | 2024-04-18 10:08 | MHC.SHP ---
Pre-Procedural Eval Section A - 24 Hr Update-Section A only Date of Service: 04/18/24 The patient is an INPATIENT: No Changes since office visit: No Cold of Flu in the past 2 weeks, No New Medical Problems, No Changes in Medication and No Patient answered all questions Section B - Complete if H&P > 30 days Chief Complaint: Neoplasm of unspecified behavior digestive system Allergies: Allergies Allergy/AdvReac Type Severity Reaction Status Date / Time No Known Allergies Allergy Verified 04/13/24 09:53 Plan I have reviewed the history and physical and performed a pertinent physical examination on my patient. No changes have occurred unless specified. Time Spent With Patient Time: Total time managing care of this patient today ____ minutes.
[2024-04-18 13:04] VITALS: BMI 18.0
[2024-04-18] MEDS: Lactated Ringers 1,000 ML 100 ML IVCONT (13:48)
[2024-04-18 13:54] VITALS: BP 140/59; PULSE 67; RESP 18; TEMP 36.7; O2SAT 99
--- NOTE | 2024-04-18 15:06 | W.PM.OPN ---
Operative Note Operative Note Date of Service: 04/18/24 Narrative: Preoperative diagnosis: [] Exophytic fungating anal mass Postop diagnosis: [] The same Procedure [] proctosigmoidoscopy, incisional biopsy anal mass, EUA Surgeon: [] Mo Second Hand Paper Machine: [] Type of Anesthesia: [] Mac Indication for surgery: [] Patient has a fungating ,exophytic mass involving the anus which extends from the left side of her anus across superiorly to the right. This involves the majority of the anal canal on the left and superior side , extending to the right. The mass was firm and minimally mobile. This is consistent with a locally advanced anal cancer. Incisional biopsy was performed. Proctoscopy to 20 cm demonstrated no other gross intraluminal pathology. Findings: [] Patient brought to the operating room, placed on operative table supine position, after an adequate level of MAC anesthesia was induced, patient was placed in lithotomy position. Findings were as noted above. From the most protruding, fungating portion of the left anal mass, 1% lidocaine/0.5% Marcaine infiltration was performed and an incisional biopsy was uneventfully undertaken. Specimen sent to pathology. Wound base was cauterized with silver nitrate followed by sterile dressing. Proctoscopy was as noted above. Sterile dressings were applied. Sponge, needle, and instrument counts reported correct. Patient tolerated the procedure well and emerged from anesthesia stable condition. EBL minimal
[2024-04-18 15:12] VITALS: BP 117/52; PULSE 56; RESP 16; TEMP 36.6; O2SAT 94
[2024-04-18 15:27] VITALS: BP 138/69; PULSE 55; RESP 16; O2SAT 100
[2024-04-18 15:42] VITALS: BP 147/60; PULSE 52; RESP 18; TEMP 36.6; O2SAT 96
== END 2024-04-18 17:05 | disposition home or self-care (01) ==
PROVIDERS: Visit Provider Surgery
PROC: (CPT 45305; principal; 2024-04-18 14:50)
DX: C21.0 Malignant neoplasm of anus, unspecified (principal); K62.5 Hemorrhage of anus and rectum
CPT/HCPCS: 45305; 88304; 88305; 88342; J0690; J2003; J2704; J2795

== ENCOUNTER → 2024-04-18 12:44 | Outpatient (BNV) | payer MEDICARE, MEDICAID, SELFPAY | PROVIDERS: Visit Provider Surgery | DX: C44.520 Squamous cell carcinoma of anal skin (principal) | CPT/HCPCS: 45305 ==

== ENCOUNTER 2024-04-28 11:52 | Outpatient (AMB) | payer MEDICARE, MEDICAID, SELFPAY ==
--- NOTE | 2024-04-28 11:58 | MHC.OFFVIS ---
Intake Visit Reasons: S/P EUA w/anal mass biopsy Intake Note: Patient here s/p EUA w/anal mass bx. Reports incision healing well. Patient c/o: mild tenderness. Procedure: proctosigmoidoscopy, incisional biopsy anal mass, EUA: 04-17-2024. Dish Machine Operator Required: No Accompanied by: Self / Same As Patient Allergies No Known Allergies Allergy (Verified 04/28/24 11:59) HPI Comments Details: Patient presents for follow-up. She has no wound issues status post recent biopsy. She read the patient portal and nose were diagnosis. This was once again reviewed with her. Locally advanced anal cancer. 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 Arrangements were made for this. All questions answered. Patient will contact me p.r.n. or should she require a port for chemotherapy. Coding Level of Care Code Global (50791) Diagnoses Anal squamous cell carcinoma C21.0
== END 2024-04-28 12:10 | disposition home or self-care (01) ==
LOC: HO.HGS 11:53
PROVIDERS: Visit Provider Surgery
DX: C21.0 Malignant neoplasm of anus, unspecified (principal)
CPT/HCPCS: 99213

== ENCOUNTER → 2024-04-28 11:52 | Outpatient (BNVA) | payer MEDICARE, MEDICAID, SELFPAY | PROVIDERS: Visit Provider Surgery | DX: Z09 Encounter for follow-up examination after completed treatment for conditions other than malignant neoplasm (principal); C21.0 Malignant neoplasm of anus, unspecified | CPT/HCPCS: 99212 ==

== ENCOUNTER → 2024-05-13 10:02 | Outpatient (BNV) | payer MEDICARE, MEDICAID, SELFPAY | PROVIDERS: Referring Provider Surgery; Visit Provider Internal Medicine | DX: C21.0 Malignant neoplasm of anus, unspecified (principal) | CPT/HCPCS: 99205; 99214; G2211 ==

== ENCOUNTER 2024-05-20 10:14 | Outpatient (REF) | payer MEDICARE, MEDICAID, SELFPAY ==
--- NOTE | ~2024-05-20 | PE_ITS ---
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 TECHNIQUE: 61 minutes following the intravenous administration of 17.3 mCi of fluorine 18 FDG, images from the base of skull to mid-thigh were obtained using a combined PET/CT scanner with CT scan based attenuation correction. No intravenous contrast was administered. Transverse, coronal, sagittal, and volume reconstruction projections were obtained. The patient's blood glucose as determined by a finger stick, was 119 mg/dL immediately prior to injection. The radiotracer was injected intravenously through a left forearm superficial vein, without any complications. Total CT exam dose-length product 224.25 mGy-cm. * These CT images were obtained using dose optimization techniques as appropriate, variously including the following: Automated exposure control * Adjustment of mA and/or kV according to patient size (this includes techniques or standardized protocols for targeted exams where dose is matched to indication/reason for exam; i.e. extremities or head) * Use of iterative reconstruction technique COMPARISON: CT of the abdomen and pelvis done on 04/13/2024. FINDINGS: SUV MAX REFERENCE: Blood: 1.3 (75/223). Liver: 1.8 (104/223). HEAD AND NECK: No abnormal radiotracer uptake. No large intracranial hemorrhage, acute territorial infarct or significant shift of midline structures. CHEST: Ports and Devices: None Lungs: Nonspecific airspace opacity at right lung base posteromedially without any tracer activity, may represent hypoventilatory, atelectatic changes, infiltrate or combination thereof. No discrete suspicious hypermetabolic lung nodule and/or mass on either side. Pleura: No significant pleural effusion. Lymph Nodes: No tracer-avid mediastinal, hilar or internal mammary or axillary lymphadenopathy. Mediastinum: There is no significant pericardial effusion/thickening. Breasts/Chest Wall: Bilateral calcified breast implants. Superimposed heterogenous increased tracer activity involving superolateral aspect of the right breast with asymmetric soft tissue fullness and SUV max of 1.8 (64/223). Follow-up clinical correlation, bilateral diagnostic mammogram and targeted ultrasound of the right breast including the superolateral aspect of right-sided breast implant is recommended for further clarification. ABDOMEN/PELVIS: Liver/Biliary System: No focal tracer-avid liver lesion. The gallbladder appears unremarkable. Pancreas: Normal. Spleen: No abnormal radiotracer uptake. No evidence of splenomegaly. Adrenal Glands: No abnormal radiotracer uptake. Kidneys: No hydronephrosis, hydroureter or renal calculi bilaterally. Bowel: There is no significant bowel dilatation to suggest obstruction. Corresponding to the previous CT detected lobulated heterogenous rim enhancing soft tissue mass seen in the region of the anal canal extending into the left-sided perineum at the level of the ischiorectal fossa there is indeed intense hypermetabolic disease identified in this region, consistent with clinically known malignancy with SUV max of 13.8 (192/223). The tumor size is approximately 6.7 x 3.5 x 6.5 cm at its maximum anteroposterior by transverse by craniocaudal dimension. Lymph Nodes: No tracer avid retroperitoneal, mesenteric or pelvic and/or groin lymphadenopathy. Pelvic Organs: The urinary bladder is underdistended. MUSCULOSKELETAL: Nonspecific heterogenous increased hypermetabolism is noted involving the axial skeleton, specifically the cervicothoracic lumbar sacral spine with SUV max of 4.7 (91/223; greater than that of the adjacent liver with SUV max of 1.8). VASCULAR: Calcific atherosclerotic disease of the aorta including coronary arteries calcification. No evidence of aneurysm. THE SITE(S) OF MOST INTENSE FDG AVIDITY AND SUV MAX: The site of primary disease involving the anal canal with SUV max of 13.8. Nonspecific mild asymmetric hyper metabolism associated with lobulated prominent soft tissue involving the superolateral aspect of the right breast with SUV max of 1.8. PET/PET CT fusion skull to thigh IMPRESSION: * Abnormal study. The site of primary disease involving the anal canal extending into the left-sided perineum at the level of the ischiorectal fossa shows intense hypermetabolism with SUV max of 13.8, consistent with clinically known malignancy. No evidence of any tracer avid regional or metastatic lymphadenopathy or distant metastasis. * Nonspecific heterogenous increased hypermetabolism is noted involving the axial skeleton, specifically the cervicothoracic lumbar sacral spine with SUV max of 4.7 (91/223; greater than that of the adjacent liver with SUV max of 1.8). The findings are nonspecific and may represent marrow hyperplasia versus marrow infiltrative disease. Follow-up MRI of the lumbar spine with and without intravenous contrast may be considered for further clarification, if clinically appropriate. * Nonspecific mild asymmetric hyper metabolism associated with lobulated prominent soft tissue involving the superolateral aspect of the right breast with SUV max of 1.8. Follow-up clinical correlation, bilateral diagnostic mammogram and targeted ultrasound of the right breast including the superolateral aspect of right-sided breast implant is recommended for further clarification. * Nonspecific airspace opacity at right lung base posteromedially without any tracer activity, may represent hypoventilatory, atelectatic changes, infiltrate or combination thereof. No discrete suspicious hypermetabolic lung nodule and/or mass on either side. Electronically signed by: Onur Reis MD 05/27/2024 01:26 PM JIE CARRILLO
== END 2024-05-20 10:15 | disposition home or self-care (01) ==
LOC: HO.PET 10:14
PROVIDERS: Visit Provider Internal Medicine
DX: Z13.89 Encounter for screening for other disorder (principal)

== ENCOUNTER 2024-06-10 09:35 | Outpatient (AMB) | payer MEDICARE, MEDICAID, SELFPAY ==
[2024-06-10 09:37] VITALS: BP 102/60; BMI 16.8
--- NOTE | 2024-06-10 09:37 | A.OFFPC_ITS ---
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: No Accompanied by: Self / Same As Patient Allergies No Known Allergies Allergy (Verified 06/10/24 09:50) Medication List - Last Reconciled 06/10/24 by Becky Pace PA-C hydrocodone-acetaminophen 5-325 mg 1 tab PO Q4-6H PRN multivitamin 1 tab PO DAILY ondansetron 8 mg PO Q8H PRN tramadol 50 mg PO Q8H PRN Tobacco use date assessed: 06/10/24 Fall risk assessment: No Falls in past year Last assessed Fall Risk: 06/10/24 Dental Screening Dental Screen Date: 06/10/24 Did you have a dental visit in the last 12 months?: Yes Did you have a dental problem in the last 6 months where you did not have access to dental care?: No Was dental information given to patient?: Patient has dentist HPI new patient HPI Details 74-year-old female with past medical his tory of anal squamous cell carcinoma coming to the office for the 1st time.? In review of the notes patient has been following with Hematology/Oncology for recent diagnosis anal squamous cell carcinoma discussed role of chemoradiation and she will start treatment 06/16/2024. Patient has not been seen by PCP in over 15-20 years. She is following with [facility] for anal carcinoma and does not follow with any other specialists. She states she often has pain and bleeding around the anus and pain with sitting. On cology has been providing her with pain medication and will continue to do so. Occasionally will have rectal incontinence due to carcinoma. She does mention she has a history of possible rheumatoid arthritis but has never been treated and denies chronic pain. [facility] Medical History Mass of anus Surgical History History of eye surgery History of left hip replacement Social History Household Members: None Housing: House Are you a primary medical care administrator to a significant other at home: No Do you presently have visiting nurse or other home services: No Patient Tobacco Use Status: Never used Tobacco service: No Cognitive needs: No Hearing needs: No Vision needs: No Questionnaire PHQ-9 Over the last 2 weeks, how often have you been bothered by any of the following problems? 4. Feeling tired or having little energy: several days Source: Developed by Drs. Jose Ireland, Shannon Quach, Evin Mendez and colleagues, with an educational anais from [employer]. Thrive Questionnaire Date Thrive assessed: 06/10/24 I am a: Patient What is your living situation today?: I have a steady place to live Within the past 12 months, did the food you bought not last and you didn't have the money to get more?: I choose not to answer this question Within the past 12 months, did you worry whether your food would run out before you got money to buy more?: I choose not to answer this question Do you have trouble paying for medicines?: I choose not to answer this question Do you have trouble getting transportation to medical appointments?: I choose not to answer this question Do you have trouble paying your heating and electricity bill?: Yes Do you have trouble taking care of your child, family member or friend?: I choose not to answer this question Do you have trouble with day-to-day activities such as bathing, preparing meals, shopping, managing finances, etc.?: No Are you currently unemployed and looking for a job?: I choose not to answer this question Are you interested in more education?: Yes Please select the resources that you would like help with: Job search/training Currently or been in a relationship where the following occur: I choose not to answer THRIVE Score: 1 AUDIT C Alcohol Use Questionnaire (AUDIT-C) 1. How often do you have a drink containing alcohol?: Never Total Score: 0 NATIVIDAD-7 AMB Questionnaire NATIVIDAD-7 Date NATIVIDAD - 7 assessed: 06/10/24 Feeling nervous, anxious, or on edge: 0 = Not at all Not being able to stop or control worryin = Not at all Worrying too much about different things: 0 = Not at all Trouble relaxin = Not at all Being so restless that it is hard to sit still: 0 = Not at all Becoming easily annoyed or irritable: 0 = Not at all Feeling afraid as if something awful might happen: 0 = Not at all Total NATIVIDAD-7 score (0-4 normal; 5-9 mild; 10-14 moderate; 15-21 severe): 0 Source: Developed by Drs. Jose Ireland, Shannon Quach, Evin Mendez and colleagues, with an educational anais from [employer]. Review of Systems Const Denies body aches, Denies chills, Denies fever(s), Denies headache(s) and Denies poor appetite Eyes Reports no additional complaints ENT Denies dizziness and Denies headache(s) Card Denies chest pain, Denies lightheadedness and Denies dyspnea Resp Denies cough and Denies dyspnea GI Denies abdominal pain, Denies constipation, Reports fecal incontinence, Reports diarrhea, Denies nausea and Denies vomiting Reports no additional complaints Musc Reports no additional complaints and Denies abnormal gait Skin/Breast Reports system reviewed and no additional complaints, except as documented Neuro Denies abnormal gait, Denies dizziness and Denies headache(s) Psych Reports no additional complaints Physical exam (Primary Care) Vital Signs: Last Vital Signs BP 102/60 06/10/24 09:37 Oxygen Delivery Method Room Air 06/10/24 09:37 BMI result Body Mass Index 16.8 Tobacco/Smoking Status: Tobacco use Status Tobacco use date assessed 06/10/24 12 09:40 Patient Tobacco Use Status Never used Tobacco 06/10/24 09:39 Thrive Assessment: Date of Thrive Assessment Date Thrive assessed 04/14/24 06/10/24 09:39 Currently or been in a relationship where the following occur: I choose not to answer Const General: cooperative, healthy appearing, comfortable and no acute distress Orientation/consciousness: patient oriented x3 HENMT Head: Yes normocephalic Ears: hearing grossly normal bilaterally General nose exam: Normal external nose present Eyes General: appearance normal, both eyes and all related structures Conjunctivae: conjunctivae normal Neck Neck: Yes full ROM and Yes no lymphadenopathy Resp Effort & Inspection: normal respiratory effort Auscultation: clear to auscultation bilaterally, no crackles, no rales, no rhonchi and no wheezes Cardio Rate: regular rate Rhythm: regular rhythm Skin General skin exam: no rashes or lesions noted Neuro General: patient oriented x3 Gait exam (Neuro): Normal gait present Extrem General: Yes normal to inspection, Yes full ROM and No edema Psych Affect: normal affect Attitude: cooperative Insight: Good insight present (Psych) Judgement: Good judgement present (Psych) Coding Level of Care Code New Pt Level 4 (83528) Diagnoses Anal squamous cell carcinoma C21.0 Anemia D64.9 Assessment & Plan Assessment & Plan (1) Anal squamous cell carcinoma: Code(s): C21.0 - Malignant neoplasm of anus, unspecified Category: Surgical Plan: Patient is scheduled to start chemoradiation in the next weeks. Continue to follow with Hematology/Oncology (2) Anemia: Code(s): D64.9 - Anemia, unspecified Category: Medical Plan: Patient found to be anemic on last labs likely due to rectal bleeding related to the carcinoma. Continue to follow with Hematology/Oncology and we will start on iron supplement and dry repeat labs. Plan Ordered for routine blood work and we will follow up in 3 months for complete annual physical. This note was constructed using voice recognition software. While every effort has been made to ensure accuracy and balance staff staker, still areas may have been included sometimes these areas may affect the content or meeting of the given symptoms. Total time spent caring for the patient today was 30 minutes. This includes time spent before the visit reviewing the chart, time spent during the visit, and time spent after the visit and documentation. Orders: Orders Lipid Panel Today Z13.220 - Encounter for screening for lipoid disorders TSH reflex Free T4 Today D64.9 - Anemia, unspecified Vitamin B12 and Folate Today D64.9 - Anemia, unspecified Vitamin D 25-OH Total Today D64.9 - Anemia, unspecified Free T4 (Free Thyroxine) Today Z00.00 - Encounter for general adult medical examination without abnormal findings IRON PROFILE Today C21.0 - Malignant neoplasm of anus, unspecified, D64.9 - Anemia, unspecified Medications: New iron,carbonyl-vitamin C 65 mg iron- 125 mg 1 tab PO BEDTIME 30 tabs 0RF
== END 2024-06-10 10:40 | disposition home or self-care (01) ==
DX: C21.0 Malignant neoplasm of anus, unspecified (principal); D64.9 Anemia, unspecified

== ENCOUNTER → 2024-06-10 09:35 | Outpatient (BNVA) | payer MEDICARE, MEDICAID, SELFPAY | DX: C21.0 Malignant neoplasm of anus, unspecified (principal); D64.9 Anemia, unspecified | CPT/HCPCS: 96127; 99202 ==

== ENCOUNTER 2025-05-09 16:34 | Emergency (ER) | payer MEDICARE, OTHER, SELFPAY ==
--- NOTE | ~2025-05-09 | XR_ITS ---
CLINICAL HISTORY: cough 2 view chest x-ray Comparison: None provided Findings: No consolidation or effusion. Heart size is normal. No acute fracture. Bilateral breast implants present. IMPRESSION: 1. No acute cardiopulmonary findings. This document has been electronically signed by: Arsenio Crespo MD on 05/09/2025 18:24:54
[2025-05-09 16:53] VITALS: BP 117/82; PULSE 86; RESP 18; TEMP 36.8; O2SAT 98; BMI 17.0
--- NOTE | 2025-05-09 16:55 | ED.GENADULT ---
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 The patient reports cough is intermittently productive of light yellow sputum. Patient denies associated chest pain at rest or hemoptysis, but does report associated pleurisy on the right which prompts coughing fits, patient denies smoking history, denies associated fever/chills, nausea, vomiting, diarrhea, dysuria, hematuria, urinary symptoms, or recent sick contacts. The patient reports 3 months ago she suffered a unwitnessed fall down an entire flight of stairs, reports she lost consciousness, woke at the bottom of the stairs, with bruising to her face and right arm, and pain in her right clavicle, however patient reports she never sought medical care as she does not like coming to hospitals. The patient denies other recent trauma, denies recent travel or lower extremity swelling/pain. Related Data Home Medications ?Medication ?Instructions ?Recorded ?Confirmed multivitamin 1 tab PO DAILY 04/13/24 08/13/24 capecitabine 500 mg tablet 1,000 mg PO BID 06/23/24 08/13/24 Previous Rx's ?Medication ?Instructions ?Recorded ondansetron 8 mg disintegrating 8 mg PO Q8H PRN Nausea And 06/02/24 tablet Vomiting #30 tabs iron,carbonyl 65 mg-vitamin C 125 1 tab PO BEDTIME #30 tabs 06/10/24 mg tablet,delayed release hydrocodone 5 mg-acetaminophen 325 1 tab PO Q8H PRN Pain (Scale Score 06/16/24 mg tablet 7-10) #30 tabs Allergies Allergy/AdvReac Type Severity Reaction Status Date / Time No Known Allergies Allergy Verified 05/09/25 16:55 Review of Systems Review of Systems: Yes all other systems are reviewed and are negative PMFSH Past Medical History Medical History Mass of anus Surgical History History of eye surgery History of left hip replacement Social History Social History Household Members: None Housing: House Are you a primary hearing healthcare practitioner to a significant other at home: No Do you presently have visiting nurse or other home services: No Alcohol intake: current Patient Tobacco Use Status: Never used Tobacco Smoked in Last 30 Days: No Advance Directives: No Advance Directives Information Provided: No service: No Cognitive needs: No Hearing needs: No Vision needs: No Physical Exam ED Vital Signs: Vital Signs - 24 hr 05/09/25 16:53 05/09/25 19:49 05/09/25 21:00 Temperature 98.3 F 98.2 F Pulse Rate 86 100 Respiratory Rate 18 18 Blood Pressure 117/82 160/71 H Pulse Oximetry 98 95 98 Oxygen Delivery Method Room Air Room Air Room Air BMI result Body Mass Index 17.0 CONSTITUTIONAL: The patient appears borderline cachectic, but otherwise non-toxic, well nourished and in no acute distress. Vital signs as documented. HEAD: Atraumatic, normocephalic. EYES: EOMs grossly intact, pupils equal, conjunctiva clear, no exudate. ENT: Nares patent, no discharge. Airway patent, no audible stridor, visible mucosa is pink and moist without noted lesions. NECK: Trachea is midline, no obvious masses or gross abnormalities. CHEST: Symmetric movement, normal appearance. LUNGS: LS present and CTAB, no w/r/r. Non-labored work of breathing. Deep respiration prompts a nonproductive coughing fit, patient appears in obvious discomfort while coughing. CARDIAC: Regular Rhythm, S1/S2 appreciated, no murmurs, rubs or gallops. ABDOMEN: Abdomen soft and non-tender x4 quadrants, no palpable masses or organomegaly. : Deferred. EXTREMITIES: Normal tone, moves all extremities spontaneously without reported pain. No obvious acute injury or deformity noted. NEURO: Alert and oriented x3, CN II-XII appear grossly intact. Cerebellar Functioning grossly intact. No obvious sensory or motor deficits. Speech clear and appropriate. PSYCH: normal affect, appropriate eye contact, fluid speech, with appropriate response to questioning. No reported suicidality or homicidality. SKIN: Warm, dry, color appropriate, normal turgor. No rashes noted. Course Course Course Narrative: Medical screening exam performed. Please refer to detailed history, exam, evaluation, and management by primary provider. Patient with a persistent cough, some sputum production. No fevers. JS Medications Administered Discontinued Medications Generic Name Dose Route Start Last Admin Trade Name Jeimy PRN Reason Stop Dose Admin Acetaminophen 975 mg 05/09/25 20:28 05/09/25 20:56 Acetaminophen 325 Mg Tablet PO 05/09/25 20:29 975 mg ONCE ONE Administration Benzonatate 100 mg 05/09/25 20:28 05/09/25 20:56 Benzonatate 100 Mg Capsule PO 05/09/25 20:29 100 mg ONCE ONE Administration Ibuprofen 600 mg 05/09/25 20:28 05/09/25 20:56 Ibuprofen 600 Mg Tablet PO 05/09/25 20:29 600 mg ONCE ONE Administration Medical Decision Making Medical Decision Making [facility] Narrative: 8:23 PM 05/09/2025 (Miles MAYA): The patient is a 74-year-old female with a history of hyperlipidemia, anemia, rheumatoid arthritis, and 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 The patient reports cough is intermittently productive of light yellow sputum. Patient denies associated chest pain at rest or hemoptysis, but does report associated pleurisy on the right which prompts coughing fits, patient denies smoking history, denies associated fever/chills, nausea, vomiting, diarrhea, dysuria, hematuria, urinary symptoms, or recent sick contacts. The patient reports 3 months ago she suffered a unwitnessed fall down an entire flight of stairs, reports she lost consciousness, woke at the bottom of the stairs, with bruising to her face and right arm, and pain in her right clavicle, however patient reports she never sought medical care as she does not like coming to hospitals. The patient denies other recent trauma, denies recent travel or lower extremity swelling/pain. The patient's exam reveals no adventitious lung sounds, no hypoxia, however patient was borderline tachycardic during her ED visit. The patient's laboratory evaluation demonstrates no leukocytosis, anemia, electrolyte abnormality, or MARY ANNE. Lactic acid is normal, viral swabs are negative for COVID and flu. The patient's chest x-ray shows no acute cardiopulmonary process. The patient refused EKG. The patient is most likely suffering from a viral URI, however given the patient's age, cancer history, recent trauma, and lack of other explanation for symptoms, we will add on a troponin, and a D-dimer. The patient continues to refuse EKG. Of note, chart review reveals the patient was treated between June and August for her rectal mass with chemotherapy and radiation. Patient's last appointment with oncology in our system was on August 13, with instructions for a repeat PET scan in 6-8 weeks, patient reports she underwent the PET scan at [facility] in August, and reports it was clear. The patient has not followed up with the Oncology since that time. We will recommend CTA chest pending results of D-dimer. 9:28 PM 05/09/2025 (Miles MAYA): The patient's D-dimer is positive, we will obtain CTA chest. While discussing plan for CTA chest the patient reports she has also been experiencing recurrent dizziness since her fall 3 months ago, with this information, and the lack of previous evaluation following the fall, we will also obtain CT head noncontrast to rule out any intracranial pathology. 10:36 PM 05/09/2025 (Miles MAYA): This provider was just notified by RN that patient was not present in her room, and was not in the CT scanner. RN reviewed tapes with security staff and noted patient left the ED at approximately 22:[address] in [address]. Of note the patient had previously asked this provider if she could leave to feed her dog and then return to the ED, patient was explicitly told at that time it was against hospital protocol for her to leave the ED and then return. The patient will be marked as eloped. RN is actively attempting to contact the patient to request return for removal of IV. Admission/Observation Consideration of admission/observation: Escalation of care including admission/observation considered Lab Data MDM Lab Attestation statement: I reviewed the patient's lab results. 05/09/25 17:38 05/09/25 17:38 Labs: Lab Results 05/09/25 05/09/25 05/09/25 Range/Units 17:38 17:39 17:52 WBC 9.1 (4.8-10.8) X10*3/uL RBC 3.85 L D (4.20-5.50) X10*6/uL Hgb 12.1 D (12.0-16.0) g/dl Hct 37.9 D (37.0-47.0) % MCV 98.4 H (80.0-98.0) fL MCH 31.4 (27.0-33.0) pg MCHC 31.9 (31.0-35.0) g/dl RDW 13.8 (11.0-16.0) % Plt Count 280 (160-400) X10*3/uL MPV 9.2 L (9.4-12.3) fL Immature Gran % (Auto) 0.2 (0.0-0.4) % Neut % (Auto) 67.4 (45-73) % Lymph % (Auto) 19.0 L (20-40) % Mesa % (Auto) 11.7 H (2-11) % Eos % (Auto) 1.4 (0-4) % Baso % (Auto) 0.3 (0-2) % Lymph # (Auto) 1.7 (1.2-4.9) X10*3/uL Mesa # (Auto) 1.1 (0.1-1.2) X10*3/uL Eos # (Auto) 0.1 (0.0-0.4) X10*3/uL Baso # (Auto) 0.0 (0.0-0.2) X10*3/uL Abs Immat Gran (auto) 0.02 (0.00-0.03) X10*3/uL Absolute Neuts (auto) 6.1 (2.0-8.3) x10*3/uL Absolute Nucleated RBC 0.000 (0.0-0.012) X10*3/uL Nucleated RBC % (auto) 0.0 (0.0-0.2) /100WBC D-Dimer High Sensitivty NG/ML Sodium 144 (135-145) mmol/L Potassium 3.9 (3.3-5.1) mmol/L Chloride 109 H (96-108) mmol/L Carbon Dioxide 22 (22-29) mmol/L Anion Gap 17 (12-20) BUN 15 (9-16) mg/dL Creatinine 0.65 (0.5-1.4) mg/dL Estim Creat Clear Calc 46.6 Estimated GFR > 60 Random Glucose 102 (60-115) mg/dL Lactic Acid 1.1 (0.5-2.0) mmol/L Calcium 9.3 (8.4-10.2) mg/dL Troponin I High Sens 12.4 (<3.5-17.0) ng/L COVID-19 (COLIN) Negative (Negative) COVID-19 Clin Com See Note Influenza Type A (PANTERA) Negative (Negative) Influenza Type B (PANTERA) Negative (Negative) Influenza A & B Note See Note 05/09/25 05/09/25 Range/Units 20:54 20:59 WBC (4.8-10.8) X10*3/uL RBC (4.20-5.50) X10*6/uL Hgb (12.0-16.0) g/dl Hct (37.0-47.0) % MCV (80.0-98.0) fL MCH (27.0-33.0) pg MCHC (31.0-35.0) g/dl RDW (11.0-16.0) % Plt Count (160-400) X10*3/uL MPV (9.4-12.3) fL Immature Gran % (Auto) (0.0-0.4) % Neut % (Auto) (45-73) % Lymph % (Auto) (20-40) % Mesa % (Auto) (2-11) % Eos % (Auto) (0-4) % Baso % (Auto) (0-2) % Lymph # (Auto) (1.2-4.9) X10*3/uL Mesa # (Auto) (0.1-1.2) X10*3/uL Eos # (Auto) (0.0-0.4) X10*3/uL Baso # (Auto) (0.0-0.2) X10*3/uL Abs Immat Gran (auto) (0.00-0.03) X10*3/uL Absolute Neuts (auto) (2.0-8.3) x10*3/uL Absolute Nucleated RBC (0.0-0.012) X10*3/uL Nucleated RBC % (auto) (0.0-0.2) /100WBC D-Dimer High Sensitivty 272 NG/ML Sodium (135-145) mmol/L Potassium (3.3-5.1) mmol/L Chloride (96-108) mmol/L Carbon Dioxide (22-29) mmol/L Anion Gap (12-20) BUN (9-16) mg/dL Creatinine (0.5-1.4) mg/dL Estim Creat Clear Calc Estimated GFR Random Glucose (60-115) mg/dL Lactic Acid (0.5-2.0) mmol/L Calcium (8.4-10.2) mg/dL Troponin I High Sens 10.5 (<3.5-17.0) ng/L COVID-19 (COLIN) (Negative) COVID-19 Clin Com Influenza Type A (PANTERA) (Negative) Influenza Type B (PANTERA) (Negative) Influenza A & B Note Independent Interpretation I performed an independent interpretation of an: EKG Radiology Impression Discussion of test interpretation with radiology: I have reviewed the radiologist's reading. Radiologist Impression: CLINICAL HISTORY: cough 2 view chest x-ray Comparison: None provided Findings: No consolidation or effusion. Heart size is normal. No acute fracture. Bilateral breast implants present. IMPRESSION: 1. No acute cardiopulmonary findings. This document has been electronically signed by: Arsenio Crespo MD on 05/09/2025 18:24:54 Prescription Management I considered prescription management with: Pain Medication and Antibiotic Discharge Plan Discharge Clinical Impression: Cough Patient Disposition: Elopement Prescriptions: No Action ondansetron 8 mg Tablet,Disintegrating 8 mg PO Q8H PRN (Reason: Nausea And Vomiting) Qty: 30 3RF hydrocodone-acetaminophen 5-325 mg Tablet 1 tab PO Q8H PRN (Reason: Pain (Scale Score 7-10)) Qty: 30 0RF Rx Instructions: Partial Fill upon patient request. capecitabine 500 mg Tablet 1,000 mg PO BID Rx Instructions: for 14 days per 21-day cycle; must administer with water 30 minutes after a meal multivitamin Tablet 1 tab PO DAILY iron,carbonyl-vitamin C 65 mg iron- 125 mg tablet,delayed release (DR/EC) 1 tab PO BEDTIME Qty: 30 0RF Interventions: ED Discharge Assessment Last Done: 05/09/25 23:51 Discharge Date/Time: 05/09/25 23:51 Print Language: Indonesian
--- NOTE | 2025-05-09 17:47 | MHC.EDTECH ---
Addendum entered by Steffi Mariano 05/09/25 17:55: provider aware Original Note: patient refused the EKG. Nurse aware
[2025-05-09 17:54] LABS: MANUAL DIFF FLAG NO
[2025-05-09 18:09] LABS: COVID-19 Test Negative (Negative); IDNOW Serial# 55D5AD1C
[2025-05-09 18:11] LABS: Anion Gap 17 (12-20); Blood Urea Nitrogen 15 mg/dL (9-16); Calcium 9.3 mg/dL (8.4-10.2); Carbon Dioxide 22 mmol/L (22-29); Chloride 109 mmol/L (96-108); Creatinine Clr Calc Pharmacy 46.6; Estimated Glomerular Filt Rate > 60; Potassium 3.9 mmol/L (3.3-5.1); Sodium 144 mmol/L (135-145)
[2025-05-09 18:13] LABS: IDNOW Serial# 58CA691E
[2025-05-09 18:14] LABS: Influenza B2 Negative (Negative)
--- NOTE | 2025-05-09 19:32 | MHC.EDTECH ---
This manometer technician introduced herself to patient when she was brought to bed #11. I noticed there is an EKG order that patient had refused from triage tech when she first arrived. I asked patient if she was still refusing or was okay to have it done, she continues to refuse.
[2025-05-09 19:49] VITALS: BP 160/71; PULSE 100; RESP 18; TEMP 36.8; O2SAT 95
--- OUTSIDE RECORDS SUMMARY | 2025-05-09 20:04 | XMS_ITS | Encounter Summary ---
Author Organization [employer] Address [address] [place] [address] [address] [address] Care Team Providers Care Material Control Specialist Name Role Phone Unavailable Primary Care Provider Unavailabl e Encounter Details Date Type Department Care Team (Latest Contact Info) Description 11/02/2021 Abstract [facility] CONVERSIONS Dental, Provider, DDS Social History Tobacco Use Types Packs/Day Years Used Date Smoking Tobacco: Never Assessed Comments Unknown Sex and Gender Information Value Date Recorded Sex Assigned at Female 05/01/2022 10:20 AM EDT Legal Sex Female 10:20 AM EDT Gender Identity Female 05/01/2022 10:20 AM EDT Sexual Orientation Straight 05/01/2022 10 :20 AM EDT documented as of this encounter Plan of Treatment Upcoming Encounters Date Type Department Care Team ( st Contact Info) Description 10/14/2025 9:30 AM EDT Office Visit [facility] OPTOMETRY [address] [place] [address] Lavelle, Juani, OD [address] [place] [address] documented as of this encounter Visit Diagnoses Not on filedocumented in this encounter
--- OUTSIDE RECORDS SUMMARY | 2025-05-09 20:04 | XMS_ITS | Clinical Summary ---
Author Organization [employer] Address [address] [place] [address] [address], [place] [address] Care Team Providers Care Nursing Aide Name Role Phone Unavailable Primary Care Provider Unavailabl e Allergies No known active allergies Medications celecoxib (CeleBREX) 200 MG capsule TAKE ONE CAPSULE BY MOUTH TWICE A DAY. START 1 DAY PRE-OP 3 04/30/20 Discontinu ed(Therapy completed) HYDROcodone-antione taminophen (Eden) 5-325 MG tablet Take 1 tablet by mouth every 6 (six) hours if needed. 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 OPTOMETRY [address] [place] [address] Lavelle, Juani, OD History of retinal detachment (Primary Dx); Cystoid macular edema of left eye; Aphakia of left eye; Combined forms of age-related cataract of right eye; Epiretinal membrane, both eyes; Chorioretinal scar, right; Peripheral reticular degeneration, right eye; Meibomian gland disease of both eyes, unspecified eyelid; Presbyopia 04/15/2025 Travel from Last 3 Months Social History Tobacco Use Types Packs/Day Years Used Date Smoking Tobacco: Never Smokeless Tobacco: Never Alcohol Use Standard Drinks/Week Comments Yes 0 (1 standard drink = 0.6 oz pur e alcohol) Comments Unknown Sex and Gender Information Value Date Recorded Sex Assigned at Female 05/01/2022 10:20 AM EDT Legal Sex Female 10:20 AM EDT Gender Identity Female 05/01/2022 10:20 AM EDT Sexual Orientation Straight 05/01/2022 10 :20 AM EDT Last Filed Vital Signs Vital Sign Reading Time Taken Comments Blood Pressure 120/76 10/22/2024 8:04 AM EDT Pulse 67 10/22/2024 8:04 AM EDT Temperature - - Respiratory Rate - - Oxygen Saturation - - Inhaled Oxygen Concentration - - Weight - - Height - - Body Mass Index - - Plan of Treatment Upcoming Encounters Date Type Department Care Team (Late st Contact Info) Description 10/14/2025 9:30 AM EDT Office Visit [facility] OPTOMETRY [address] [place] [address] Lavelle, Juani, OD [address] [place] [address] Health Maintenance Due Date Last Done Comments CT Colonography 1949 Colonoscopy 1949 Colorectal Cancer Screening 1949 Depression Screening 1949 FIT DNA/Cologuard 1949 FIT 1949 FOBT 1949 SDOH Screening 1949 Sigmoidoscopy 1949 Alcohol/Substance Use Screening 1961 DTaP/Tdap/Td Vaccines (1 - Tdap) 1968 Zoster Vaccines (1 of 2) 1999 Dental X-Ray: Full Mouth 10/27/2019 10/25/2016 Pneumococcal Vaccine: 50+ Years (2 of 2 - PPSV23) 08/12/2020 08/12/2019 RSV Patients and Patients Aged 60 years or older (1 - 1-dose 75+ series) 2024 COVID-19 Vaccine ( - season) 2025 05/10/2023, 05/22/2022, 05/03/2021, Additional history exists Influenza Vaccine (#1) 2025 , 04/26/2022, 03/26/2021, Additional history exists Dental Oral Exam 04/04/2025 10/02/2024, 12/2023, 11/02/2021, Additional history exists Dental Prophylaxis 04/04/2025 10/02/2024, 0 12/06/2023, 11/02/2021, Additional history exists Dental X-Ray: Bitewings 12/06/2025 12/06/19, 12/06/2023, 11/02/2021, Additional history exists Tobacco Screening 04/30/2026 04/30/2025 Hepatitis C Screening Completed 07/24/2019 HIB Vaccines Aged Out No longer eligi ble based on patient's age to complete this topic HPV Vaccines Aged Out No longer eligi ble based on patient's age to complete this topic Hepatitis A Vaccines Aged Out No long er eligible based on patient's age to complete this topic Hepatitis B Vaccines Aged Out No long er eligible based on patient's age to complete this topic IPV Vaccines Aged Out No longer eligi ble based on patient's age to complete this topic Meningococcal B Vaccine Aged Out No l onger eligible based on patient's age to complete this topic Meningococcal Vaccine Aged Out No janelle gavin eligible based on patient's age to complete this topic RSV under 20 months Aged Out No longe r eligible based on patient's age to complete this topic Rotavirus Vaccines Aged Out No longer eligible based on patient's age to complete this topic Procedures Procedure Name Priority Date/Time Associated Diagnosis Comments OCT, RETINA - OU - BOTH EYES Routine 04/15/2025 9:00 AM EDT Cystoid macular edema of left eye BITEWING - SINGLE RADIOGRAPHIC IMAGE Routine 12/05/2024 3:30 PM EDT Necrosis of dental pulp PROPHYLAXIS - ADULT Routine 10/02/2024 1 0:00 AM EDT PERIODIC ORAL EVALUATION - ESTABLISHED PATIENT Routine 10/02/2024 10:00 AM EDT ZZZ HISTORICAL HEPATITIS A,B,C PROFILE Routine 07/24/2019 10:10 AM EST INTRAORAL - COMPLETE SERIES OF RADIOGRAPHIC IMAGES Routine 10/25/2016 12:00 AM EDT from Last 3 Months or Most Recently Relevant to Health Maintenance Results * OCT, Retina - OU - Both Eyes (04/15/2025 9:00 AM EDT) Juani Zamora, OD - 05/01/2025 10:14 AM EDT Images from the original result were not included. OCT MACULA INTERPRETATION Optical Coherence Tomography Interpretation Report Measurements: OD OS Macula Thickness 279 microns 254 microns Test findings: OD: Slightly distorted nasal portion of fovea, epiretinal membrane throughout macula, no cystoid macular edema, no retinal pigment epithelium disruption, no subretinal fluid OS: Retina is thinner temporally causing a slightly flattened temporal portion of fovea, epiretinal membrane throughout macula, isolated cystic space just inferonasal to fovea, no retinal pigment epithelium disruption, no subretinal fluid Impression and Plan: Stable right eye. Macular edema in the left eye has improve significantly. No treatment is recommended at this time. Will monitor here in 6 months. Juani Valderrama OD OPHTH TOMOGRAPHY Final Result * HEPATITIS A,B,C PROFILE (07/24/2019 10:10 AM EST) HEPATITIS B CORE ANTIBODY NONREACTIVE NONREACTIVE [facility] HEPATITIS B INTERPRETATION SEE NOTE [facility] Comment:Negative for Hepatit is B. HEPATITIS B SURFACE ANTIBODY NONREACTIVE NONREACTIVE [facility] Comment:NONREACTIVE: < 8.00 mIU/mL HEPATITIS B SURFACE ANTIGEN NEGATIVE NEGATIVE [facility] HEPATITIS C ANTIBODY NONREACTIVE NONREACTIVE [facility] Comment: Antibodies to HCV not detected; does not exclude early acute HCV infection. 07/24/2019 10:1 0 AM EST Historical Provider HISTORICAL/NON ORDERABLE LABS Final Result [facility] [address] from Last 3 Months or Most Recently Relevant to Health Maintenance Insurance MEDICARE DENTAL - HSN PARTIAL (MEDICAID) * Guarantor: Penelope Canchola Account Type Relation to Patient Date of Phone Billing Address Personal/Family Self [address] [place]
--- OUTSIDE RECORDS SUMMARY | 2025-05-09 20:04 | XMS_ITS | Encounter Summary ---
Author Organization [employer] Address [address] [place] [address], [place] [address] Care Team Providers Care Tooling Engineering Tech Name Role Phone Unavailable Primary Care Provider Unavailabl e Encounter Details Date Type Department Care Team (Latest Contact Info) Description 01/16/2019 Abstract [facility] CONVERSIONS Dental, Provider, DDS Social History Tobacco [...] Description 10/14/2025 9:30 AM EDT Office Visit [facility] OPTOMETRY [address] [place] [address] Lavelle, Juani, OD [address] [place] [address] documented as of this encounter Visit Diagnoses Not on filedocumented in this encounter
--- OUTSIDE RECORDS SUMMARY | 2025-05-09 20:04 | XMS_ITS | Clinical Summary ---
Author Organization [facility] Address [address] [place] [address] Phone Care Team Providers Care Herbarium Worker Name Role Phone Bryce Farfan MD Primary Care Provider [phone] Allergies No known active allergies Medications HYDROcodone-acetam inophen (NORCO) 5-325 mg per tablet TAKE ONE TABLET BY MOUTH EVERY 4 TO 6 HOURS NEEDED FOR PAIN 04/18/20 24 Active ondansetron (ZOFRAN-ODT) 8 MG disintegrating tablet DISSOLVE ONE TABLET BY MOUTH EVERY 8 HOURS NEEDED FOR NAUSEA AND VOMITING 06/03/20 24 Active traMADoL (ULTRAM) 50 mg tablet TAKE 1 TABLET EVERY 8 HOURS NEEDED FOR PAIN SCALE SCORE 7-10) 05/19/20 24 Active acetaminophen (TYLENOL) 500 MG tablet Take 1,000 mg by mouth every 6 (six) hours as needed for pain (specific location in comments). 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 Not on poncho e 05/13/2024 Are you concerned about learning? Not on file 05/13/2024 No 05/13/2024 No 05/13/2024 Digital Access Answer Date Recorded No 05/13/2024 No 05/13/2024 Reliable internet access at home? Not on file 05/13/2024 Device with a working camera? Not on file Comments Unknown Sex and Gender Information Value Date Recorded Sex Assigned at Not on file Legal Sex Female 11:56 AM EST Gender Identity Not on file Sexual Orientation Not on file Last Filed Vital Signs Vital Sign Reading Time Taken Comments Blood Pressure 149/92 09/11/2024 3:14 PM EDT Pulse 81 09/11/2024 3:14 PM EDT Temperature 36.8 C (98.2 F) 09/11/2024 3:14 PM EDT Respiratory Rate 16 09/11/2024 3:14 PM EDT Oxygen Saturation 98% 09/11/2024 3:14 PM EDT Inhaled Oxygen Concentration - - Weight 39 kg (86 lb) 09/11/2024 3:14 PM EDT Height 152.4 cm (5') 07/08/2024 3:00 PM EST Body Mass Index 16.8 07/08/2024 3:00 PM EST Plan of Treatment Upcoming Encounters Date Type Department Care Team (Late st Contact Info) Description 05/11/2025 10:00 AM EST Office Visit [address] [address] Billie Low MD [address] [place] [address] [email or web address] Health Maintenance Due Date Last Done Comments Adult Td,Tdap Booster 1949 LIPID PANEL 1949 DEPRESSION SCREENING 1961 HEPATITIS C SCREENING 1967 PNEUMOCOCCAL VACCINES (50+ y ears) (1 of 2 - PCV) 1968 ZOSTER VACCINES (1 of 2) 1968 COLOGUARD 1994 COLONOSCOPY 1994 COLORECTAL CANCER SCREENING 1994 FIT TEST 1994 FOBT 1994 SIGMOIDOSCOPY 1994 VIRTUAL COLONOSCOPY 1994 OSTEOPOROSIS SCREENING INITI AL (ONE-TIME) 2014 RSV VACCINE (1 - 1-dose 75+ series) 2024 INFLUENZA VACCINE (#1) 2025 COVID-19 VACCINE ( - 2024-2 6 season) 2025 SMOKING STATUS SCREENING (On ce After 26 Yrs) Completed 09/11/2024 HEPATITIS A VACCINES Aged Out No long er eligible based on patient's age to complete this topic HIB VACCINES Aged Out No longer eligi ble based on patient's age to complete this topic MENINGOCOCCAL VACCINES (ACWY) Aged Out No longer eligible based on patient's age to complete this topic MENINGOCOCCAL VACCINES (B) Aged Out N o longer eligible based on patient's age to complete this topic Medical Devices Not on file [place] [id number] HEALTH SAFETY NET FULL SAFETY NET PARTIAL MEDICARE PART A & B HEALTH SAFETY NET FULL Member Subscriber Plan / Payer (Ef fective 2024-Present) Name:Penelope Canchola Relation to Subscriber:Self Name:Penelope Canchola Payer ID:Not on file Group ID:Not on file Type:Medicaid Address: [address] SAFETY NET PARTIAL HEALTH SAFETY NET FULL Member Subscriber Plan / Payer ( fective 2024-Present) Name:Penelope Canchola Relation to Subscriber:Self Name:Penelope Canchola Payer ID:Not on file Group ID:Not on file Type:Medicaid Address: [address] SAFETY NET PARTIAL MEDICARE PART A & B HEALTH SAFETY NET FULL HEALTH SAFETY NET PARTIAL MEDICARE PART A & B HEALTH SAFETY NET FULL HEALTH SAFETY NET PARTIAL MEDICARE PART A & B [employer] SAFETY NET FULL Member Subscriber Plan / Payer ( fective 2024-Present) Name:Penelope Canchola Relation to Subscriber:Self Name:Penelope Canchola Payer ID:Not on file Group ID:Not on file Type:Medicaid Address: [address] SAFETY NET PARTIAL Care Teams Herbarium Worker Relationship Specialty Start Date End Date Bryce Farfan MD [address] [place] [address] PCP - General Family Medicine 05/13/24 Additional Source Comments The information contained in this document represents components of the legal health record. It is not the complete legal health record.[facility]
--- OUTSIDE RECORDS SUMMARY | 2025-05-09 20:04 | XMS_ITS | Encounter Summary ---
Author Organization [facility] Address [address] [place] [address] Phone Care Team Providers Care Chief Merchandising Officer Name Role Phone Bryce Farfan MD Primary Care Provider [phone] Reason for Visit * Reason Onset Date Comments Concurrent pt 2024 Encounter Details Date Type Department Care Team (Late Contact Info) Description 2024 Telephone [facility] At [facility] Rad Onc [address] [place] [address] David Espinoza MD [address] [place] [address] [email or web address] Concurrent pt Social History Tobacco Use Types Packs/Day Years Used Date Smoking Tobacco: Never Smokeless Tobacco: Never Education Answer Date Recorded Are you interested [...] on file Sexual Orientation Not on file documented as of this encounter Plan of Treatment Upcoming Encounters Date Type Department Care Team ([facility] Contact Info) Description 05/11/2025 10:00 AM EST Office Visit [address] [address] Billie Low MD [address] [place] [address] [email or web address] documented as of this encounter Visit Diagnoses Not on filedocumented in this encounter Care Teams Chief Merchandising Officer Relationship Specialty Start Date End Date Bryce Farfan MD [address] [place] [address] PCP - General Family Medicine 05/13/24 documented as of this encounter Additional Source Comments The information contained in this document represents components of the legal health record. It is not the complete legal health record.[facility]
[2025-05-09 20:13] LABS: Hematocrit 37.9 % (37.0-47.0); Hemoglobin 12.1 g/dl (12.0-16.0); Imm Gran Abs Auto 0.02 X10*3/uL (0.00-0.03); Imm Gran Pct Auto 0.2 % (0.0-0.4); Lymphocytes Absolute Auto 1.7 X10*3/uL (1.2-4.9); Mean Corpuscular HGB Conc 31.9 g/dl (31.0-35.0); Mean Corpuscular Hemoglobin 31.4 pg (27.0-33.0); Mean Corpuscular Volume 98.4 fL (80.0-98.0); NRBC Abs Auto 0.000 X10*3/uL (0.0-0.012); NRBC Pct Auto 0.0 /100WBC (0.0-0.2); Platelet Count 280 X10*3/uL (160-400); Red Blood Count 3.85 X10*6/uL (4.20-5.50); White Blood Count 9.1 X10*3/uL (4.8-10.8)
--- NOTE | 2025-05-09 20:37 | PC.NURSE ---
Assumed care of pt, presents with coughing x1 week, pt states that she has diaphragm pain from the coughing, states non-productive at this time, aaox4, nad,
[2025-05-09 21:00] VITALS: O2SAT 98
[2025-05-09 21:03] LABS: Troponin-I High Sensitivity 12.4 ng/L (<3.5-17.0)
[2025-05-09 21:14] LABS: D Dimer High Sensitivity 272 NG/ML
[2025-05-09 21:24] LABS: Troponin-I High Sensitivity 10.5 ng/L (<3.5-17.0)
--- NOTE | 2025-05-09 23:48 | PC.NURSE ---
2244 I went to check on pt, noticed that all patient belonging were gone, checked cameras with security and observed patient walk out of the ED at 2229 with her IV still in her right forearm, I called her and advised to back to the ED for removal of IV , 2247 Patient returned to the ED to have I removed
[2025-05-09 23:51] VITALS: BP 158/73; PULSE 98; RESP 18; TEMP 36.8; O2SAT 98
== END 2025-05-09 23:51 | disposition left against medical advice (07) ==
PROVIDERS: Physician Assistant; Emergency Provider Emergency Medicine
DX: R05.9 Cough, unspecified (principal); C21.0 Malignant neoplasm of anus, unspecified; R79.89 Other specified abnormal findings of blood chemistry; Z91.81 History of falling
CPT/HCPCS: 71046; 80048; 83605; 84484; 85025; 85379; 87040; 87502; 87635; 99283; 99285

== ENCOUNTER → 2025-05-09 16:59 | Outpatient (BNV) | payer MEDICARE, SELFPAY | PROVIDERS: Visit Provider Radiology Diagnostic Radiology | DX: R05.9 Cough, unspecified (principal) | CPT/HCPCS: 71046 ==

== ENCOUNTER 2025-05-27 14:55 | Outpatient (AMB) | payer MEDICARE, SELFPAY ==
[2025-05-27 14:59] VITALS: BP 90/62; PULSE 110; RESP 18; O2SAT 93; BMI 14.9
--- NOTE | 2025-05-27 14:59 | MHC.PC.OV ---
Vital Signs 05/27/25 14:59 Height 5 ft Weight 76 lb 8 oz BMI 14.9 BP 90/62 Blood Pressure Location Lt brachial Position Sitting Respiration 18 Pulse 110 H Pulse Source Pulse Oximeter Temp Source Temporal Artery Scan Pulse Oximetry (%) 93 Oxygen Delivery Method Room Air Intake Visit Reasons: Cough Hydrostatic Tester Required: No Accompanied by: Self / Same As Patient Allergies No Known Allergies Allergy (Verified 05/27/25 15:01) Tobacco use date assessed: 05/27/25 Fall risk assessment: 1 Fall in past year Last assessed Fall Risk: 05/27/25 Dental Screening Dental Screen Date: 05/27/25 Did you have a dental visit in the last 12 months?: No Did you have a dental problem in the last 6 months where you did not have access to dental care?: No Was dental information given to patient?: No HPI HPI Comments History of Present Illness Details History of Present Illness - The patient is a 75 year old individual presenting with a persistent cough that started about four to five weeks ago. - The cough is severe, causing pain and bruising in the diaphragm and rib area, and is worsening. - It is described as a congestive cough that disrupts sleep, and has been associated with a 10-pound weight loss. - About four weeks ago, the patient visited an emergency room for this issue, where a chest x-ray was performed and a COVID-19 test was negative. - The patient believed a blood test was positive for a blood clot but left the ER without treatment. - Records indicate a troponin level was drawn, not a test for a blood clot, and the patient received no medication for the cough. - Past medical history is notable for anal cancer, which the patient states is now resolved. - The patient is followed by Dr. Platt for oncology. Social History - Nutritional Status: The patient reports a 10-pound weight loss and currently weighs in the 70s. Results - Prior ER visit (approx. 4 weeks ago): Chest X-ray performed. - Prior ER visit (approx. 4 weeks ago): COVID-19 test was negative. - Prior ER visit (approx. 4 weeks ago): Troponin test was performed. [facility] Medical History (Updated 05/29/25 @ 11:32 by Luis Antonio Bose MD) Acute bronchitis Mass of anus Surgical History History of eye surgery History of left hip replacement Social History Household Members: None Housing: House Are you a primary lawn care specialist to a significant other at home: No Do you presently have visiting nurse or other home services: No Alcohol intake: current Patient Tobacco Use Status: Never used Tobacco service: No Cognitive needs: No Hearing needs: No Vision needs: No Questionnaire Thrive Questionnaire Date Thrive assessed: 06/10/24 I am a: Patient What is your living situation today?: I have a steady place to live Within the past 12 months, did the food you bought not last and you didn't have the money to get more?: I choose not to answer this question Within the past 12 months, did you worry whether your food would run out before you got money to buy more?: I choose not to answer this question Do you have trouble paying for medicines?: I choose not to answer this question Do you have trouble getting transportation to medical appointments?: I choose not to answer this question Do you have trouble paying your heating and electricity bill?: Yes Do you have trouble taking care of your child, family member or friend?: I choose not to answer this question Do you have trouble with day-to-day activities such as bathing, preparing meals, shopping, managing finances, etc.?: No Are you currently unemployed and looking for a job?: I choose not to answer this question Are you interested in more education?: Yes Please select the resources that you would like help with: Job search/training Currently or been in a relationship where the following occur: I choose not to answer THRIVE Score: 1 NATIVIDAD-7 AMB Questionnaire NATIVIDAD-7 Date NATIVIDAD - 7 assessed: 06/10/24 Source: Developed by Drs. Jose Ireland, Shannon Quach, Evin Mendez and colleagues, with an educational anais from [employer]. Review of Systems Narrative Review of Systems - Constitutional: Reports unintentional weight loss of 10 pounds. - Respiratory: Reports a severe, persistent, congestive cough for the past 4-5 weeks. - Musculoskeletal: Reports pain and bruising around the diaphragm and ribs secondary to coughing. - Neurological/Psychiatric: Reports inability to sleep due to coughing. Physical exam (Primary Care) Vital Signs: Last Vital Signs Pulse 110 H 05/27/25 14:59 Resp 18 05/27/25 14:59 BP 90/62 05/27/25 14:59 Pulse Ox 93 05/27/25 14:59 Oxygen Delivery Method Room Air 05/27/25 14:59 BMI result Body Mass Index 14.9 Tobacco/Smoking Status: Tobacco use Status Tobacco use date assessed 05/27/25 05/27/25 15:11 Patient Tobacco Use Status Never used Tobacco 05/27/25 15:00 Thrive Assessment: Date of Thrive Assessment Date Thrive assessed 06/10/24 05/27/25 15:00 Currently or been in a relationship where the following occur: I choose not to answer Narrative Physical Exam General: Appearance normal, both eyes and all related structures Nutritional Appearance: Lost 10 pounds, cannot afford to lose more Orientation/consciousness: Patient oriented x3 Limitations: No limitations Head: Normal to inspection Neck: Normal visual inspection Chest: Bruises present all the way around Respiratory: Persistent cough, normal respiratory effort Neurology: Patient oriented x3 Coding Level of Care Code Est Pt Level 4 (08988) Diagnoses Acute bronchitis J20.9 Assessment & Plan Assessment & Plan (1) Acute bronchitis: Code(s): J20.9 - Acute bronchitis, unspecified Category: Medical Plan Plan - Initiate a course of antibiotics for the persistent cough. - Prescribe prednisone to address inflammation associated with the cough. - Prescribe a cough medicine containing codeine to suppress the cough and aid sleep. - All three prescriptions will be sent to the [facility] pharmacy on [facility]. - The patient is advised to call and schedule a follow-up appointment with Becky by Sunday if there is no improvement in symptoms. Discussion Notes I discussed the treatment plan for the patient's persistent and severe cough. Although the patient expressed concern about the number of medications, I explained the necessity of the antibiotic, prednisone, and codeine-containing cough medicine to manage the symptoms and facilitate sleep. I informed the patient that the three prescriptions would be sent to the preferred pharmacy. I advised a follow-up with Becky by Sunday if symptoms do not improve. Patient Instructions - Take the prescribed antibiotic, prednisone, and cough medicine with codeine as directed to help with your cough. - petroleum inspector supervisor your three new prescriptions at the [facility] pharmacy on [facility]. - You should start to feel better within a few days. - If you are not feeling better by Sunday, please call the office to see Becky. Medications: New azithromycin take 500 mg today (day 1), then 250 mg for 4 days (days 2-5) PO 6 tabs 0RF prednisone 60 mg (3 x 20 mg) PO DAILY 9 tabs 0RF codeine-guaifenesin 10-100 mg/5 mL 5 mL PO Q6H PRN 120 mL 0RF allergy symptoms
--- OUTSIDE RECORDS SUMMARY | 2025-05-27 17:33 | XMS_ITS | Encounter Summary ---
Author Organization [facility] Address [address] [place] [address] Phone Care Team Providers Care Barber Shop Manager Name Role Phone Bryce Farfan MD Primary Care Provider [phone] Reason for Visit * Reason Onset Date Comments Concurrent pt 2024 Encounter Details Date Type Department Care Team (Late st Contact Info) Description 2024 Telephone [facility] At [facility] Rad Onc [address] [place] [address] David Espinoza MD [address] [place] [phone] [email or web address] Concurrent pt Social History Tobacco Use [...] Upcoming Encounters Date Type Department Care Team (Latest Contact Info) Description 07/28/2025 1:30 PM EST Office Visit [facility] [place] [address] Billie Low MD [address] [place] [phone] [email or web address] 11/25/2025 8:00 AM EDT Pre-Admission Testing [facility] Pre Procedure Evaluation Center [address] [place] [address] Billie Low MD [address] [place] [phone] [email or web address] 12/02/2025 Procedure Pass [facility] PERIOP DEPT [address] [place] [address] 12/02/2025 2:00 PM EDT Hospital Encounter [facility] [address] [place] [address] Billie Low MD [address] [place] [phone] [email or web address] 12/02/2025 2:00 PM EDT - 12/02/2025 3:20 PM EDT Surgery [facility] [address] [place] [address] Billie Low MD [address] [place] [phone] [email or web address] INSERTION INTRAOCULAR LENS SECONDARY 12/03/2025 8:00 AM EDT Office Visit [facility] [place] [address] Billie Low MD [address] [place] [address] [email or web address] 12/10/2025 7:50 AM EDT Office Visit [facility] [place] [address] [place] [address] Billie Low MD [address] [place] [address] [email or web address] 12/31/2025 1:30 PM EDT Office Visit [facility] [place] [address] [place] [address] Billie Low MD [address] [place] [address] [email or web address] Scheduled Procedures Name Priority Associated Diagnoses Date/Ti me INSERTION INTRAOCULAR LENS SECONDARY Aphakia, left 12/02/2025 2:00 PM EDT documented as of this encounter Visit Diagnoses Not on filedocumented in this encounter Care Teams Barber Shop Manager Relationship Specialty Start Date End Date Bryce Farfan MD [address] [place] [address] PCP - General Family Medicine 05/13/24 documented as of this encounter Additional Source Comments The information contained in this document represents components of the legal health record. It is not the complete legal health record.[facility]
--- OUTSIDE RECORDS SUMMARY | 2025-05-27 17:33 | XMS_ITS | Encounter Summary ---
Author Organization [employer] Address [address] [place] [address] [place] [address] Care Team Providers Care Bartender Manager Name Role Phone Unavailable Primary Care Provider Unavailabl e Encounter Details Date Type Department Care Team (Latest Contact Info) Description 01/16/2019 Abstract [facility] CONVERSIONS Dental, Provider, DDS Social History [...] Description 10/14/2025 9:30 AM EDT Office Visit [facility] OPTOMETRY [address] [place] [address] Lavelle, Juani, OD [address] [place] [address] documented as of this encounter Visit Diagnoses Not on filedocumented in this encounter
--- OUTSIDE RECORDS SUMMARY | 2025-05-27 17:34 | XMS_ITS | Clinical Summary ---
Author Organization [employer] [facility] Address [address] [place] [address] [place], [place] [address] Care Team Providers Care Crusher Loader Operator Name Role Phone Unavailable Primary Care Provider Unavailabl e Allergies No known active allergies Medications celecoxib (CeleBREX) 200 MG capsule TAKE ONE CAPSULE BY MOUTH TWICE A DAY. START 1 DAY PRE-OP 3 04/30/20 25 Discontinu ed(Therapy completed) HYDROcodone-antione taminophen ([place]) 5-325 MG tablet Take 1 tablet by mouth every 6 (six) hours if needed. 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) 10/01 Encounters Date Type Department Care Team Description 04/15/2025 9:00 AM EDT Office Visit [facility] OPTOMETRY [address] [place] [address] Lavelle, Juani, OD History of retinal detachment [...] Description 10/14/2025 9:30 AM EDT Office Visit [facility] OPTOMETRY [address] [place] [address] Lavelle, Juani, OD [address] [place] [address] Health Maintenance Due Date Last Done Comments CT Colonography 1950 Colonoscopy 1949 Colorectal Cancer Screening 1949 Depression Screening 1949 FIT DNA/Cologuard 1949 FIT 1949 FOBT 1949 SDOH Screening 1949 Sigmoidoscopy 1949 Alcohol/Substance Use Screening 1961 DTaP/Tdap/Td Vaccines (1 - Tdap) 1968 Zoster Vaccines (1 of 2) 1999 Dental X-Ray: Full Mouth 10/27/2019 10/25/2016 Pneumococcal Vaccine: 50+ Years (2 of 2 - PCV20 or PCV21) 08/12/2020 08/12/2019 RSV Patients and Patients Aged [...] - Both Eyes (04/15/2025 9:00 AM EDT) Narrative Juani Valderrama, OD - 05/01/2025 10:14 AM EDT Images [...] Historical Provider HISTORICAL/NON ORDERABLE LABS Final Result [facility] [address] from Last 3 Months or Most Recently Relevant to Health Maintenance Insurance MEDICARE DENTAL - HSN PARTIAL (MEDICAID) * Guarantor: Penelope Canchola Account Type Relation to Patient Date of Phone Billing Address Personal/Family Self [address] [place]
--- OUTSIDE RECORDS SUMMARY | 2025-05-27 17:34 | XMS_ITS | Encounter Summary ---
Author Organization [employer] Address [address] [place] [address] [place] [address] Care Team Providers Care Want Ad Receiver Name Role Phone Unavailable Primary Care Provider Unavailabl e Encounter Details Date Type Department Care Team (Latest Contact Info) Description 11/02/2021 Abstract [facility] CONVERSIONS Dental, Provider, DDS Social History [...] Description 10/14/2025 9:30 AM EDT Office Visit [facility] OPTOMETRY [address] [place] [address] Lavelle, Juani, OD [address] [place] [address] documented as of this encounter Visit Diagnoses Not on filedocumented in this encounter
--- OUTSIDE RECORDS SUMMARY | 2025-05-27 17:34 | XMS_ITS | Clinical Summary ---
Author Organization [facility] Address [address] [place] [address] Phone Care Team Providers Care Drywall Taper Helper Name Role Phone Bryce Farfan MD Primary Care Provider [phone] Allergies No known active allergies Medications HYDROcodone-acetam [...] Signed by David Espinoza MD on 05/15/2024 Encounters Date Type Department Care Team Description 05/19/2025 Telephone [facility] Comprehensive Ophthalmology [address] [address] Doug Akbar 05/11/2025 10:00 AM EST Office Visit [facility] [address] [address] Billie Low MD Aphakia, left (Primary Dx); Nuclear sclerotic cataract, right; History of retinal detachment; Vitreous syneresis, right; Chronic dryness of both eyes; 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 from Last 3 Months Family History Medical History Relation Comments Ulcerative [...] 1:30 PM EST Office Visit [facility] [place] [address] [place] [address] Billie Low MD [address] [place] [address] [email or web address] 11/25/2025 8:00 AM EDT Pre-Admission Testing [facility] Pre Procedure Evaluation Center [address] [place] [address] Billie Low MD [address] [place] [address] [email or web address] 12/02/2025 Procedure Pass [facility] PERIOP DEPT [address] [place] [address] 12/02/2025 2:00 PM EDT Hospital Encounter [facility] DEPT [address] [place] [address] Billie Low MD [address] [place] [address] [email or web address] 12/02/2025 2:00 PM EDT - 12/02/2025 3:20 PM EDT Surgery [facility] PERIOP DEPT [address] [place] [address] Billie Low MD [address] [place] [address] [email or web address] INSERTION INTRAOCULAR LENS SECONDARY 12/03/2025 8:00 AM EDT Office Visit [facility] [address] [address] Billie Low MD [address] [place] [address] Omar@[email or web address] 12/10/2025 7:50 AM EDT Office Visit [facility] [place] [address] [place] [address] Billie Low MD [address] [place] [address] [email or web address] 12/31/2025 1:30 PM EDT Office Visit [facility] [place] [address] [facility] [place] [address] Billie Low MD [address] [place] [address] [email or web address] Scheduled Procedures Name Priority Associated Diagnoses Date/Ti me INSERTION INTRAOCULAR LENS SECONDARY Aphakia, left 12/02/2025 2:00 PM EDT Health Maintenance Due Date Last Done Comments [...] SCREENING (On ce After 26 Yrs) Completed 05/11/2025 HEPATITIS A VACCINES Aged Out No long [...] on patient's age to complete this topic Goals Goal Patient Goal Type Associated Problems Recent Progress Patient-Stated? Author Autoflorencio turk Goal Care Plan Autogenerated Problem No Steph Mitchell Medical Devices Not on file Procedures Procedure Name Priority Date/Time Associated Diagnosis Comments CORNEAL TOPOGRAPHY - OU - BOTH EYES Routine 05/11/2025 11:01 AM EST Aphakia, left OPTICAL BIOMETRY - OU - BOTH EYES Routine 05/11/2025 11:01 AM EST Aphakia, left from Last 3 Months Results * Corneal Topography - OU - Both Eyes (05/11/2025 11:01 AM EST) Anatomical Region Laterality Modality Head Optical Coherenc e Tomography Narrative 05/11/2025 11:33 AM EST OD: with the rule astigmatism of 1.9D, pachy apex 504 OS: with the rule astigmatism of 1.3D, pachy apex 505 Billie Low MD OPHTHALMOLOGY IMAGING Final Res ult * Optical Biometry - OU - Both Eyes (05/11/2025 11:01 AM EST) Narrative MARY - 05/11/2025 11:32 AM EST I have reviewed the biometry data. Billie Low MD OPHTHALMOLOGY IMAGING Final Res ult MARY from Last 3 Months Additional Health Concerns Active Problems Noted Date Diagnosed Date Autogenerated Problem 05/27/2025 Insurance MEDICARE PART A & B [facility] FULL HEALTH SAFETY NET PARTIAL MEDICARE PART A & B HEALTH SAFETY NET FULL HEALTH SAFETY NET PARTIAL MEDICARE PART A & B HEALTH SAFETY NET FULL Member Subscriber Plan / Payer (Ef fective 2024-Present) Name:Penelope Canchola Relation to Subscriber:Self Name:Penelope Canchola Payer ID:Not on file Group ID:Not on file Type:Medicaid Address: [address] SAFETY NET PARTIAL MEDICARE PART A & B HEALTH SAFETY NET FULL Member Subscriber Plan / Payer ( fective 2024-Present) Name:Penelope Canchola Relation to Subscriber:Self Name:Penelope Canchola Payer ID:Not on file Group ID:Not on file Type:Medicaid Address: [address] NET PARTIAL MEDICARE PART A & B HEALTH SAFETY NET FULL HEALTH SAFETY NET PARTIAL MEDICARE PART A & B HEALTH SAFETY NET FULL HEALTH SAFETY NET PARTIAL Care Teams Drywall Taper Helper Relationship Specialty Start Date End Date Bryce Farfan MD [address] [place] [address] PCP - General Family Medicine 05/13/24 Additional Source Comments The information contained in this document represents components of the legal health record. It is not the complete legal health record.[facility]
--- OUTSIDE RECORDS SUMMARY | 2025-05-27 17:34 | XMS_ITS | Encounter Summary ---
Author Organization [facility] Address [address] [place] [address] Phone Care Team Providers Care Chrome Plater Name Role Phone Bryce Farfan MD Primary Care Provider Encounter Details Date Type Department Care Team (Late st Contact Info) Description 05/19/2025 Telephone [facility] Comprehensive Ophthalmology [address] [address] Doug [email or web address] Social History Tobacco Use Types Packs/Day Years [...] 1:30 PM EST Office Visit [facility] [place] [address] [place] [address] Bilile Low MD [address] [place] [address] [email or web address] 11/25/2025 8:00 AM EDT Pre-Admission Testing [facility] Pre Procedure Evaluation Center [address] [place] [address] Billie Low MD [address] [place] [address] [email or web address] 12/02/2025 Procedure Pass [facility] PERIOP DEPT [address] [place] [address] 12/02/2025 2:00 PM EDT Hospital Encounter [facility] PERIOP DEPT [address] [place] [address] Billie Low MD [address] [place] [address] [email or web address] 12/02/2025 2:00 PM EDT - 12/02/2025 3:20 PM EDT Surgery [facility] PERIOP DEPT [address] [place] [address] Billie Low MD [address] [place] [address] [email or web address] INSERTION INTRAOCULAR LENS SECONDARY 12/03/2025 8:00 AM EDT Office Visit [facility] [place] [address] [place] [address] Billie Low MD [address] [place] [phone] [email or web address] 12/10/2025 7:50 AM EDT Office Visit [facility] [place] [address] [place] [address] Billie Low MD [address] [place] [address] [email or web address] 12/31/2025 1:30 PM EDT Office Visit [facility] [place] [address] [place] [address] Billie Low MD [address] [place] [phone] [email or web address] Scheduled Procedures Name Priority Associated Diagnoses Date/Ti me INSERTION INTRAOCULAR LENS SECONDARY Aphakia, left 12/02/2025 2:00 PM EDT documented as of this encounter Visit Diagnoses Not on filedocumented in this encounter Care Teams Chrome Plater Relationship Specialty Start Date End Date Bryce Farfan MD [address] [place] [address] PCP - General Family Medicine 05/13/24 documented as of this encounter Additional Source Comments The information contained in this document represents components of the legal health record. It is not the complete legal health record.[facility]
== END 2025-05-27 15:37 | disposition home or self-care (01) ==
LOC: HO.HMCH 14:56
PROVIDERS: Visit Provider Internal Medicine
DX: J20.9 Acute bronchitis, unspecified (principal)

== ENCOUNTER → 2025-05-27 14:55 | Outpatient (BNVA) | payer MEDICARE, SELFPAY | PROVIDERS: Visit Provider Internal Medicine | DX: J20.9 Acute bronchitis, unspecified (principal) | CPT/HCPCS: 99212 ==

== ENCOUNTER 2025-06-19 07:24 | Outpatient (REF) | payer MEDICARE, OTHER, SELFPAY ==
--- NOTE | ~2025-06-19 | CT_ITS ---
EXAMINATION: CT CHEST WITHOUT CONTRAST CLINICAL INFORMATION: R05.3. Chronic cough. History of abdominal cancer. COMPARISON: CT chest 8 0 dated June 26, 2013 is not available on PACS. TECHNIQUE: Multidetector volumetric CT imaging of the chest was done. Axial MIP volume rendering provided. Sagittal and coronal reformatted images were obtained. This CT examination was performed using dose optimization techniques as appropriate, variously including the following: *Automated exposure control *Adjustment of mA and/or kV according to patient size (this includes techniques or standardized protocols for targeted exams where dose is matched to indication/reason for exam; i.e. extremities or head) *Use of iterative reconstruction technique DLP: 69 mGy-cm FINDINGS: PHYSICIAN PRESIDENT: Bilateral breast implants. Hyperinflated lungs. Thoracolumbar scoliosis. Upper extremities to the size of the head. LUNGS: Peribronchial septal thickening and patchy pulmonary groundglass and linear attenuation in the periphery of the lower lung lobes and to a lesser extent right middle lung lobe, lingula and right upper lung lobe/posterior segment. MEDIASTINUM: Prominent mediastinal lymph nodes. Calcified plaques in the thoracic aorta wall and the coronary arteries. Ascending thoracic aorta diameter is 36 mm. Heart is not enlarged. Small volume pericardial effusion. Thyroid gland is not enlarged. CORONARY ARTERY CALCIFICATION: Calcified plaques. PLEURA: No pleural effusion. No pneumothorax. No calcified pleural plaques. No hemothorax. AXILLA: No lymphadenopathy. Circumferential calcified bilateral breast implants. UPPER ABDOMEN: Calcified plaques in the abdominal aorta wall. OSSEOUS STRUCTURES: S-shaped curvature of the thoracolumbar spine with a dextroconvex morphology in the mid thoracic spine and levoconvex rotatory component and at the thoracolumbar junction. Multilevel spondylosis without acute fracture or gross listhesis. No gross lytic or blastic lesions. Mild superior endplate compression deformity at T12. Multilevel Schmorl nodes throughout the axial skeleton. No acute rib fracture. Degenerative changes in the right shoulder. CT/CT chest wo con - High Res IMPRESSION: Concerning multifocal pneumonia. Coronary artery disease and atherosclerosis disease. Multilevel spondylosis and scoliosis, thoracolumbar spine. Text message sent via [employer] to the requesting physician Dr. Maria E Cortez at 8:38 AM on June 19, 2025. Fleischner guidelines were followed. Electronically signed by: Talha Mark MD 06/19/2025 08:38 AM EST RP
--- OUTSIDE RECORDS SUMMARY | 2025-06-19 07:27 | XMS_ITS | Encounter Summary ---
Author Organization [facility] Address [address] [place] [address] Phone Care Team Providers Care Digital Account Executive Name Role Phone Bryce Farfan MD Primary Care Provider [phone] Encounter Details Date Type Department Care Team (Late st Contact Info) Description 05/19/2025 Telephone [facility] [address] [place] [address] Doug Akbar@[email or web address] Social History Tobacco Use Types Packs/Day Years [...] Description 07/28/2025 1:30 PM EST Office Visit [facility] [address] [place] [address] Billie Low MD [address] [place] [phone] [email or web address] 11/25/2025 8:00 AM EDT Pre-Admission Testing [facility] Pre Procedure Evaluation Center [address] [place] [address] Billie Low MD [address] [place] [address] [email or web address] 12/02/2025 Procedure Pass [facility] PERIOP DEPT [address] [place] [address] 12/02/2025 2:00 PM EDT Hospital Encounter [facility] PERIOP DEPT [address] [place] [address] Billie Low MD [address] [place] [address] [email or web address] 12/02/2025 2:00 PM EDT - 12/02/2025 3:20 PM EDT Surgery [facility] PERIOP DEPT [address] [place] [address] Billie Low MD [address] [place] [phone] [email or web address] INSERTION INTRAOCULAR LENS SECONDARY 12/03/2025 8:00 AM EDT Office Visit [facility] [address] [place] [address] Billie Low MD [address] [place] [address] Omar@[email or web address] 12/10/2025 7:50 AM EDT Office Visit [facility] [address] [place] [address] Billie Low MD [address] [place] [address] [email or web address] 12/31/2025 1:30 PM EDT Office Visit [facility] Eye and Ear Cornea Service [address] [place] [address] Billie Low MD [address] [place] [address] [email or web address] Scheduled Procedures Name Priority Associated Diagnoses Date/Ti me INSERTION INTRAOCULAR LENS SECONDARY Aphakia, left 12/02/2025 2:00 PM EDT documented as of this encounter Visit Diagnoses Not on filedocumented in this encounter Care Teams Digital Account Executive Relationship Specialty Start Date End Date Bryce Farfan MD [address] [place] [address] PCP - General Family Medicine 05/13/24 documented as of this encounter Additional Source Comments The information contained in this document represents components of the legal health record. It is not the complete legal health record.[facility]
--- OUTSIDE RECORDS SUMMARY | 2025-06-19 07:27 | XMS_ITS | Encounter Summary ---
Author Organization [employer] Address [address] [place] [address] [place], [place] [address] Care Team Providers Care Reinforcing Steel Worker Wire Mesh Name Role Phone Unavailable Primary Care Provider Unavailabl e Encounter Details Date Type Department Care Team (Latest Contact Info) Description 01/16/[address] [facility] CONVERSIONS Dental, Provider, DDS Social History [...] 9:30 AM EDT Office Visit [facility] OPTOMETRY [address] [place] [address] Lavelle, Juani, OD [address] [place] [address] documented as of this encounter Visit Diagnoses Not on filedocumented in this encounter
--- OUTSIDE RECORDS SUMMARY | 2025-06-19 07:27 | XMS_ITS | Encounter Summary ---
Author Organization [employer] Address [address] [place] [address] [place], [place] [address] Care Team Providers Care Fusing Machine Feeder Name Role Phone Unavailable Primary Care Provider Unavailabl e Encounter Details Date Type Department Care Team (Latest Contact Info) Description 11/02/2021 Abstract [facility] CONVERSIONS Dental, Provider, DDS Social History [...] Description 10/14/2025 9:30 AM EDT Office Visit [facility] OPTOMETRY [address] [place] [address] Lavelle, Juani, OD [address] [place] [address] documented as of this encounter Visit Diagnoses Not on filedocumented in this encounter
--- OUTSIDE RECORDS SUMMARY | 2025-06-19 07:27 | XMS_ITS | Clinical Summary ---
Author Organization [facility] Address [address] [address] Phone Care Team Providers Care County Attorney Name Role Phone Bryce Farfan MD Primary Care Provider [phone] Allergies No known active allergies Medications HYDROcodone-acetam [...] Type Department Care Team Description 05/19/2025 Telephone [facility] Eye and Ear Comprehensive Ophthalmology Service [address] [place] [address] Doug Akbar 05/11/2025 10:00 AM EST Office Visit [facility] Eye and Ear Cornea Service [address] [place] [address] Billie Low MD Aphakia, left (Primary Dx); [...] [facility] [address] [place] [address] Billie Low MD [address] [place] [phone] [email or web address] 11/25/2025 8:00 AM EDT Pre-Admission Testing [facility] Pre Procedure Evaluation Center [address] [place] [address] Billie Low MD [address] [place] [phone] [email or web address] 12/02/2025 Procedure Pass [facility] PERIOP DEPT [address] [place] [address] 12/02/2025 2:00 PM EDT Hospital Encounter [facility] PERIOP DEPT [address] [place] [address] Billie Low MD [address] [place] [address] [email or web address] 12/02/2025 2:00 PM EDT - 12/02/2025 3:20 PM EDT Surgery [facility] PERIOP DEPT [address] [place] [address] Billie Low MD [address] [place] [phone] [email or web address] INSERTION INTRAOCULAR LENS SECONDARY 12/03/2025 8:00 AM EDT Office Visit [facility] [address] [place] [address] Billie Low MD [address] [place] [address] [email or web address] 12/10/2025 7:50 AM EDT Office Visit [facility] [address] [place] [address] Bilile Low MD [address] [place] [address] [email or web address] 12/31/2025 1:30 PM EDT Office Visit [facility] [address] [place] [address] Billie Low MD [address] [place] [phone] [email or web address] Scheduled Procedures Name Priority Associated Diagnoses Date/Ti me INSERTION INTRAOCULAR LENS SECONDARY Aphakia, left 12/02/2025 2:00 PM EDT Health Maintenance Due Date Last Done Comments Adult Td,Tdap Booster 1950 LIPID PANEL 1950 DEPRESSION SCREENING 1961 HEPATITIS C SCREENING 1967 PNEUMOCOCCAL VACCINES (50+ y ears) (1 of 2 - PCV) 1968 ZOSTER VACCINES (1 of 2) 1968 OSTEOPOROSIS SCREENING INITI AL (ONE-TIME) 2014 RSV [...] Type Associated Problems Recent Progress Patient-Stated? Author Autogenera burke Goal Care Plan Autogenerated Problem No Steph [...] Both Eyes (05/11/2025 11:01 AM EST) Narrative HARMONY - 05/11/2025 11:32 AM EST I have reviewed the biometry data. Billie Low MD OPHTHALMOLOGY IMAGING Final Res ult MARY from Last 3 Months Additional Health Concerns Active Problems Noted Date Diagnosed Date Autogenerated Problem 05/27/2025 Insurance MEDICARE PART A & B [facility] FULL HEALTH SAFETY NET PARTIAL [place]IC[place] PART [place] [id number] HEALTH SAFETY NET FULL HEALTH SAFETY NET PARTIAL MEDICARE PART A & B [place] SAFETY NET FULL Member Subscriber Plan / Payer ( fective 2024-) Name:Penelope Canchola Relation to Subscriber:Self Name:Penelope Canchola Payer ID:Not on file Group ID:Not on file Type:Medicaid Address: [address] NET PARTIAL MEDICARE PART A & B HEALTH SAFETY NET FULL HEALTH SAFETY NET PARTIAL MEDICARE PART A & B HEALTH SAFETY NET FULL HEALTH SAFETY NET PARTIAL MEDICARE PART A & B Member Subscriber Plan / Payer (Ef fective 2014-Present) Name:Penelope Canchola Member ID:[id number] Relation to Subscriber:Self Name:Penelope Canchola Subscriber ID:[id number] Payer ID:[id number] Group ID:Not on file Type:Medicare Address: [facility] [employer] [facility] [address] [phone] HEALTH SAFETY NET FULL HEALTH SAFETY NET PARTIAL Care Teams County Attorney Relationship Specialty Start Date End Date Bryce Farfan MD [address] [place] [address] PCP - General Family Medicine 05/13/24 Additional Source Comments The information contained in this document represents components of the legal health record. It is not the complete legal health record.[facility]
--- OUTSIDE RECORDS SUMMARY | 2025-06-19 07:27 | XMS_ITS | Encounter Summary ---
Author Organization [facility] Address [address] [place] [address] Phone Care Team Providers Care Can Machine Operator Name Role Phone Bryce Farfan MD Primary Care Provider [phone] Reason for Visit * Reason Onset Date Comments Concurrent pt 2024 Encounter Details Date Type Department Care Team (Late st Contact Info) Description [address] [facility] Radiation Oncology Clinic [address] [place] [address] David Espinoza MD [address] [place] [address] [email or web address] [place] Concurrent pt Social History Tobacco Use Types Packs/Day Years Used Date Smoking Tobacco: Never Smokeless Tobacco: Never Education Answer Date Recorded Are you interested in more education? Not on pocnho e 05/13/2024 Are you concerned about learning? [...] Description 07/28/2025 1:30 PM EST Office Visit [facility] Eye and Ear Cornea Service [address] [place] [address] Billie Low MD [address] [place] [phone] [email or web address] 11/25/2025 8:00 AM EDT Pre-Admission Testing [facility] Procedure Evaluation Center [address] [place] [address] Billie Low MD [address] [place] [address] [email or web address] 12/02/2025 Procedure Pass [facility] PERIOP DEPT [address] [place] [address] 12/02/2025 2:00 PM EDT Hospital Encounter [facility] PERIOP DEPT [address] [place] [address] Billie Low MD [address] [place] [phone] [email or web address] 12/02/2025 2:00 PM EDT - 12/02/2025 3:20 PM EDT Surgery [facility] PERIOP DEPT [address] [place] [address] Billie Low MD [address] [place] [phone] [email or web address] INSERTION INTRAOCULAR LENS SECONDARY 12/03/2025 8:00 AM EDT Office [facility] [address] [place] [address] Billie Low MD [address] [place] [phone] [email or web address] 12/10/2025 7:50 AM EDT Office Visit [facility] [address] [place] [address] Billie Low MD [address] [place] [address] [email or web address] 12/31/2025 1:30 PM EDT Office Visit [facility] and Ear Cornea Service [address] [place] [address] Billie Low MD [address] [place] [address] [email or web address] Scheduled Procedures Name Priority Associated Diagnoses Date/Ti me INSERTION INTRAOCULAR LENS SECONDARY Aphakia, left 12/02/2025 2:00 PM EDT documented as of this encounter Visit Diagnoses Not on filedocumented in this encounter Care Teams Can Machine Operator Relationship Specialty Start Date End Date Bryce Farfan MD [address] [place] [address] PCP - General Family Medicine 05/13/24 documented as of this encounter Additional Source Comments The information contained in this document represents components of the legal health record. It is not the complete legal health record.[facility]
--- OUTSIDE RECORDS SUMMARY | 2025-06-19 07:27 | XMS_ITS | Clinical Summary ---
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 Aphakia of left eye 04/21/2024 Cystoid macular edema of left eye 04/21/2024 History of retinal detachment 04/21/2024 Seronegative rheumatoid arthritis ([facility]) 10/01 Encounters Date Type Department Care Team Description 04/15/2025 9:00 AM EDT Office Visit [facility] OPTOMETRY [address] [place] [address] Lavelle, Juani, OD History of retinal detachment [...] Description 10/14/2025 9:30 AM EDT Office Visit [facility] OPTOMETRY [address] [place], [place] [phone] Lavelle, Juani, OD [address] [place], [place] [phone] Health Maintenance Due Date Last Done Comments Depression Screening 1950 SDOH Screening 1950 Alcohol/Substance Use Screening 1961 DTaP/Tdap/Td Vaccines (1 - Tdap) 1968 Zoster Vaccines (1 of 2) 1999 Dental X-Ray: Full Mouth 10/27/2019 10/25/2016 Pneumococcal Vaccine: 50+ Years (2 of 2 - PCV20 or PCV21) 08/12/2020 08/12/2019 RSV Patients and Patients Aged 60 years or older (1 - 1-dose 75+ series) 2024 COVID-19 Vaccine ( season) 2025 05/10/2023, 05/22/2022, 05/03/2021, Additional history [...] Historical Provider HISTORICAL/NON ORDERABLE LABS Final Result [facility] [address] from Last 3 Months or Most Recently Relevant to Health Maintenance Insurance MEDICARE DENTAL - HSN PARTIAL (MEDICAID)
== END 2025-06-19 07:25 | disposition home or self-care (01) ==
LOC: HO.CT 07:24
PROVIDERS: Visit Provider Student in an Organized Health Care Education/Training Program
DX: R05.3 Chronic cough (principal)
CPT/HCPCS: 71250

== ENCOUNTER → 2025-06-19 07:26 | Outpatient (BNV) | payer MEDICARE, SELFPAY | PROVIDERS: Visit Provider Radiology Diagnostic Radiology | DX: I25.10 Atherosclerotic heart disease of native coronary artery without angina pectoris (principal) | CPT/HCPCS: 71250 ==